=== PATIENT | male | born 1945 | race Hispanic/Latino ===

== ENCOUNTER 2019-06-01 15:58 | Observation (INO) | payer MEDICARE ==
[~2019-06-01] VITALS: Ht 175.3 cm; Wt 91.6 kg
[~2019-06-01 15:58] MED LIST: ASPIR 8181 MG PO; GLIPIZIDE5 MG PO; HYDROCHLOROTH12.5 MG PO; IBUPROFEN400 MG PO; LISINOPRIL40 MG PO; LOVASTATIN20 MG PO; METFORMIN HCL500 MG PO; THORAZINE25 MG PO
[2019-06-01] MEDS ORDERED: SODIUM CHLORIDE 0.9% 1000ML 1,000 ML IV STA (16:06)
[2019-06-01 16:40] LABS: BASOPHILS % 0.3 % (0.0-1.0); EOSINOPHILS % 0.1 % (0.0-6.0); HEMATOCRIT 35.7 % (38.2-49.6); HEMOGLOBIN 11.9 g/dL (14.0-18.0); LYMPHOCYTES # (AUTO) 1.6 (1.0-3.2); LYMPHOCYTES % 14.9 % (18.0-39.1); MEAN CORPUSCULAR HEMOGLOBIN 30.4 pg (28-32); MEAN CORPUSCULAR HGB CONC 33.3 g/dL (31-35); MEAN CORPUSCULAR VOLUME 91.3 fL (81-99); MONOCYTES # (AUTO) 1.5 (0.2-0.8); MONOCYTES % 13.7 % (4.4-11.3); NEUTROPHILS # (AUTO) 7.5 (2.1-6.9); NEUTROPHILS % 70.7 % (38.7-80.0); PLATELET COUNT 170 x10e3/uL (140-360); RED BLOOD COUNT 3.91 x10e6/uL (4.3-5.7); RED CELL DISTRIBUTION WIDTH 13.7 % (11.7-14.4)
[2019-06-01 16:52] LABS: INR 1.11; PARTIAL THROMBOPLASTIN TIME 33.2 seconds (23.8-35.5)
[2019-06-01] MEDS ORDERED: CEFEPIME 2 GM/NS 0.9% 100 ML 100 ML IV SCH (17:00)
[2019-06-01 17:02] LABS: ALBUMIN 3.8 g/dL (3.5-5.0); ALBUMIN/GLOBULIN RATIO 0.8 (0.8-2.0); ANION GAP 10.9 mmol/L (8-16); CREATININE, SERUM 1.72 mg/dL (0.72-1.25); MAGNESIUM 1.7 MG/DL (1.3-2.1); POTASSIUM 3.9 mmol/L (3.5-5.1)
[2019-06-01 17:08] LABS: CREATINE KINASE MB 0.9 ng/mL (0-5.0)
--- NOTE | 2019-06-01 17:09 | Diagnostic Imaging Report ---
EXAMINATION: CHEST SINGLE (PORTABLE) INDICATION: Cough COMPARISON: None FINDINGS: LINES/TUBES:None LUNGS:The lungs are moderately inflated. Mild left basilar subsegmental atelectasis. No focal consolidation or pulmonary edema. PLEURA:No pleural effusion or pneumothorax. MEDIASTINUM:The cardiomediastinal silhouette appears normal in size and shape. BONES/SOFT TISSUES:No acute osseous injury. ABDOMEN:No free air under the diaphragm. IMPRESSION: No focal pneumonia or pulmonary edema. Left basilar subsegmental atelectasis. Signed by: Osbaldo Gayle MD on 06/01/2019 5:07 PM
--- NOTE | 2019-06-01 17:12 | Diagnostic Imaging Report ---
EXAMINATION: Head CT HISTORY: Alteration of consciousness, possible stroke, history of TIA and prior stroke. COMPARISON: None available TECHNIQUE: Multidetector axial images were obtained without contrast from the foramen magnum to the vertex . The images were reconstructed using brain and bone algorithms. Thin section brain images were reformatted into coronal and sagittal planes. Image quality: Motion/streaking artifact limits the evaluation of the skull base and posterior cranial fossa. Dose modulation, iterative reconstruction, and/or weight based adjustment of the mA/kV was utilized to reduce the radiation dose to as low as reasonably achievable. FINDINGS: Parenchyma: 1. Cortical subcortical encephalomalacia in the left medial occipital (cuneus, to a lesser extent lingual gyri) as well as the precuneus, associated compensatory dilatation of the left occipital horn. This corresponds to a chronic infarct along the left LITIGATION LEGAL SECRETARY distribution as there is also a small chronic infarct in the left posterior thalamus. 2. Scattered white matter hypodensities, most likely nonspecific chronic microvascular ischemic changes. Small chronic lacunar infarct in the left caudate and lentiform nuclei. 3. No mass or hemorrhage. No CT evidence of acute territorial vascular insult. Extra-axial spaces:No abnormal density. No extra-axial fluid collections Brain volume: Normal for age. Ventricles: No hydrocephalus or displacement. Arteries: No density suggestive of thrombus. Dural sinuses: No abnormal density. Foramen magnum: No mass, Chiari malformation, or basilar invagination. Sella: No obvious mass. Paranasal/mastoid sinuses: Imaged portions unremarkable. Skull/Scalp: No lytic or blastic lesions. No fractures. IMPRESSION: 1. No acute intracranial hemorrhage or CT evidence of acute territorial cortical infarct. 2. Left occipital chronic infarct. 3. Mild white matter chronic microvascular ischemic changes. Signed by: Dr. Marina Alejandro M.D. on 06/01/2019 5:10 PM
[2019-06-01] MEDS ORDERED: VANCOMYCIN 1GM/NS 250 ML 250 ML IV ONE (17:30)
[2019-06-01 18:07] LABS: BILIRUBIN,URINE NEGATIVE (NEGATIVE); CLARITY,URINE SL CLOUDY (CLEAR); COLOR,URINE YELLOW (YELLOW); KETONES,URINE NEGATIVE (NEGATIVE); LEUKOCYTE ESTERASE ,URINE TRACE (NEGATIVE); NITRITE,URINE NEGATIVE (NEGATIVE); PROTEIN,URINE DIPSTICK TRACE (NEGATIVE); URINE UROBILINOGEN 0.2 mg/dL (0.2 - 1)
[2019-06-01 18:20] LABS: BACTERIA,URINE MANY /HPF; EPITHELIAL CELLS,URINE FEW /LPF; RBC,URINE 0-5 /HPF (0-5); WBC,URINE (MAN) 0-5 /HPF (0-5)
[2019-06-01] MEDS ORDERED: PANTOPRAZOLE 40 MG 10ML VIAL IV STA (20:24)
[2019-06-01] MEDS ORDERED: ONDANSETRON HCL INJ 2MG/ML 2ML 2 MG/ML VIAL IV PRN (20:30)
[2019-06-01 20:59] LABS: STREPTOCOCCUS GRP A ANTIGEN NEGATIVE (NEGATIVE)
--- OUTSIDE RECORDS SUMMARY | 2019-06-01 21:06 | XMS REPORT ---
Author [email or web address] Address Unknown Phone Unavailable Care Team Providers Care Section Leader And Machine Setter Name Role Phone Tenzin CHAVES Unavailable Unavailable Problems This patient has no known problems. Allergies, Adverse Reactions, Alerts This patient has no known allergies or adverse reactions. Medications This patient has no known medications. Results Test Description Test Time Test Comments Text Results Atomic Results Result Comments CHEST SINGLE (PORTABLE) 2019-06-01 17:07:00 [place] [id number] Patient Name: PREM VALLEJO MR #: [id number] : 1945 Age/Sex: 73/M Req #: [id number] Adm Physician: Ordered by: ANNIE CHAVES MD Report #: [id number] Location: ER Room/Bed: Procedure: [id number] DX/CHEST SINGLE (PORTABLE) Exam Date: 06/01/19 Exam Time: 1620 REPORT STATUS: Signed EXAMINATION: CHEST SINGLE (PORTABLE) INDICAT ION: Cough COMPARISON: None FINDINGS: LINES/TUBES:None LUNGS:The lungs are moderately inflated. Mild left basilar subsegmental atelectasis. No focal consolidation or pulmonary edema. PLEURA:No pleural effusion or pneumothorax. MEDIASTINUM:The cardiomediastinal silhouette appears normal in size and shape. BONES/SOFT TISSUES:No acute osseous injury. ABDOMEN:No free air under the diaphragm. IMPRESSION: No focal pneumonia or pulmonary edema. Left basilar subsegmental atelectasis. Signed by: Vee Gayle MD on 06/01/2019 5:07 PM Dictated By: VEE GAYLE MD 06 Transcribed By: CHRISTOPHER on 06/01/191706 COPY TO: ANNIE CHAVES MD CT BRAIN WO 2019-06-01 16:59:00 [place] [id number] Patient Name: PREM VALLEJO MR #: [id number] : 1945 Age/Sex: 73/M Req #: [id number] Adm Physician: Ordered by: ANNIE CHAVES MD Report #: [id number] Location: ER Room/Bed: Procedure: [id number] CT/CT BRAIN WO Exam Date: 06/01/19 Exam Time: 1620 REPORT STATUS: Signed EXAMINATION: Head CT HISTORY: Alteration of consciousness, possible stroke, history of TIA and prior stroke. COMPARISON: None available TECHNIQUE: Multidetector axial images were obtained without contrast from the foramen magnum to the vertex . The images were reconstructed using brain and bone algorithms. Thin section brain images were reformatted into coronal and sagittal planes. Image quality: Motion/streaking artifact limits the evaluation of the skull base and posterior cranial fossa. Dose modulation, iterative reconstruction, and/or weight based adjustment of the mA/kV was utilized to reduce the radiation dose to as low as reasonably achievable. FINDINGS: Parenchyma: 1. Cortical subcortical encephalomalacia in the left medial occipital (cuneus, to a lesser extent lingual gyri) as well as the precuneus, associated compensatory dilatation of the left occipital horn. This corresponds to a chronic infarct along the left DIRECTOR WORKFORCE MANAGEMENT distribution as there is also a small chronic infarct in the left posterior thalamus. 2. Scattered white matter hypodensities, most likely nonspecific chronic microvascular ischemic changes. Small chronic lacunar infarct in the left caudate and lentiform nuclei. 3. No mass or hemorrhage. No CT evidence of acute territorial vascular insult. Extra-axial spaces:No abnormal density. No extra-axial fluid collections Brain volume: Normal for age. Ventricles: No hydrocephalus or displacement. Arteries: No density suggestive of thrombus. Dural sinuses: No abnormal density. Foramen magnum: No mass, Chiari malformation, or basilar invagination. Sella: No obvious mass. Paranasal/mastoid sinuses: Imaged portions unremarkable. Skull/Scalp: No lytic or blastic lesions. No fractures. IMPRESSION: 1. No acute intracranial hemorrhage or CT evidence of acute territorial cortical infarct. 2. Left occipital chronic infarct. 3. Mild white matter chronic microvascular ischemic changes. Signed by: Dr. Deirdre Alejandro M.D. on 06/01/2019 5:10 PM Dictated By: DEIRDRE ALEJANDRO MD 09 Transcribed By: CHRISTOPHER on 06/01/191709 COPY TO: ANNIE CHAVES MD
[2019-06-01 21:10] LABS: INFLUENZAE A&B ANTIGEN (RAPID) POSITIVE FLU A (NEGATIVE)
[2019-06-01] MEDS: SODIUM CHLORIDE 0.9% 1000ML 1,000 ML IV SCH (21:22)
[2019-06-01] MEDS: AZITHROMYCIN 500MG/NS 250 ML 250 ML IV SCH (23:00)
[2019-06-02 00:30] LABS: CREATINE KINASE MB 1.3 ng/mL (0-5.0)
[2019-06-02 06:28] LABS: BASOPHILS % 0.4 % (0.0-1.0); HEMATOCRIT 33.3 % (38.2-49.6); LYMPHOCYTES # (AUTO) 2.1 (1.0-3.2); LYMPHOCYTES % 26.5 % (18.0-39.1); MEAN CORPUSCULAR VOLUME 90.7 fL (81-99); MONOCYTES # (AUTO) 1.3 (0.2-0.8); MONOCYTES % 17.1 % (4.4-11.3); NEUTROPHILS # (AUTO) 4.3 (2.1-6.9); NEUTROPHILS % 55.9 % (38.7-80.0); PLATELET COUNT 147 x10e3/uL (140-360); RED BLOOD COUNT 3.67 x10e6/uL (4.3-5.7); RED CELL DISTRIBUTION WIDTH 13.6 % (11.7-14.4)
[2019-06-02 06:57] LABS: ALBUMIN 3.3 g/dL (3.5-5.0); ALBUMIN/GLOBULIN RATIO 0.8 (0.8-2.0); ANION GAP 11.6 mmol/L (8-16); CALCIUM 8.5 mg/dL (8.4-10.2); CREATININE, SERUM 1.38 mg/dL (0.72-1.25); POTASSIUM 3.6 mmol/L (3.5-5.1)
[2019-06-02] MEDS: SODIUM CHLORIDE 0.9% 1000ML 1,000 ML IV SCH (08:45)
[2019-06-02] MEDS: OSELTAMIVIR PHOSPHATE 75 MG CAP PO SCH ×2 (08:46→16:31)
[2019-06-02] MEDS: PANTOPRAZOLE 40 MG 10ML VIAL IV SCH ×2 (08:46→16:31)
[2019-06-02 09:21] LABS: CREATINE KINASE MB 2.2 ng/mL (0-5.0)
--- NOTE | 2019-06-02 10:38 | NUR ---
H&P cc: sob HPI: 73yoM, PCP , pt not feeling well, tired and fatigued, developed sob, found to have flu infection. PMH: DM2, HLD, stroke PSHx: appendectomy Allergies; see emr Fh/SH; non cigs; meds see MAR ROS; no f/c/s/N/V/D/CARO/cp/skin rash/back pain/dysuria/dizziness v/s; revd PE tired appearing; anicteric; Dry mucus membranes ns1s2 moderately reduced BS soft nt nd no e/t skin dry n. affect labs/meds revd A/P: Inflenza A infection- tamilfu Sepsis- iv abx JC- ivf Hyponatremia- reassess after ivf UTI- iv abx DM2- hab1c/lipids HLD- home med; diet Prop: scd Dispo: f/u labs; Mart Sullivan MD, PhD.
[2019-06-02] MEDS ORDERED: NON-FORMULARY MEDICATION (Lovastatin 20 MG) PO PRN (10:45)
[2019-06-02 10:59] LABS: CHOL/HDL RATIO 3.5 (3.9-4.7)
--- NOTE | 2019-06-02 12:15 | NUR ---
Received patient via bed from ER. Accompanied by daughter. AAOX3 to time, person, place. Respirations even and unlabored. Denies pain. Oriented patient and daughter to room. Instructed to use call light for assistance for assistance. Voiced understanding.
[2019-06-02 12:23] VITALS: BP 154/71
[2019-06-02 12:45] VITALS: BP 154/71
[2019-06-02 12:46] VITALS: BP 154/71
[2019-06-02] MEDS ORDERED: LOSARTAN POTASS25 MG PO (12:57)
[2019-06-02] MEDS ORDERED: AMLODIPINE BESY10 MG PO (12:57)
[2019-06-02] MEDS ORDERED: PIOGLITAZONE HC45 MG PO (12:57)
[2019-06-02] MEDS ORDERED: CLONIDINE HCL0.1 MG PO (12:57)
[2019-06-02] MEDS ORDERED: FERROUS SULFAT325 M1 PO (12:57)
[2019-06-02] MEDS: CEFTRIAXONE SOD 1 GM/NS 50 ML 50 ML IV SCH (13:00)
[2019-06-02] MEDS ORDERED: HYDROCORTISONE 2.5% PR CRM 1 OZ TUBE PR PRN (15:15)
[2019-06-02 15:29] LABS: CREATINE KINASE MB 2.5 ng/mL (0-5.0)
[2019-06-02 15:52] VITALS: BP 144/68
[2019-06-02] MEDS: AMLODIPINE BESYLATE 10 MG TAB PO SCH (16:31)
--- NOTE | 2019-06-02 19:10 | NUR ---
RECEIVED THE PATIENT IN REPORT.LYEING IN THE BED.STABLE CONDITION.FAMILY MEMBER AT BED SIDE.
--- NOTE | 2019-06-02 19:12 | NUR ---
Report given to oncoming nurse of patient's status. Resting in bed. No s/s of acute distress noted. Side rails upx2, call light within reach, family member at bedside.
[2019-06-02] MEDS: AZITHROMYCIN 500MG/NS 250 ML 250 ML IV SCH (19:47)
[2019-06-02 20:00] VITALS: BP 147/71
[2019-06-02] MEDS ORDERED: ACETAMINOPHEN 325 MG TAB PO PRN (20:30)
[2019-06-02] MEDS ORDERED: SIMVASTATIN 20 MG TAB PO SCH (21:00)
--- NOTE | 2019-06-02 22:30 | NUR ---
Fever notified to .received new orders.
--- NOTE | 2019-06-02 23:21 | NUR ---
Assessment done.no resp.distress.no pain voiced.iv to left ac is patent.bed locked and in lowest position.phone and call light within reach.instructed to call for assistance as needed.
[2019-06-03] VITALS: BP 142/65
[2019-06-03 04:00] VITALS: BP 153/71
--- NOTE | 2019-06-03 07:00 | NUR ---
Bed side shift report given to oncoming Rn.stable condition.
--- NOTE | 2019-06-03 07:05 | NUR ---
BEDSIDE SHIFT REPORT RECEIVED FROM SAMANTHA CHAPA. PT DENIES NEEDS AT THIS TIME.
[2019-06-03 08:19] VITALS: BP 141/66
[2019-06-03] MEDS ORDERED: ASPIRIN 81 MG CHEW TAB PO SCH (09:00)
[2019-06-03] MEDS ORDERED: FERROUS SULFATE 325 MG TAB PO SCH (09:00)
[2019-06-03] MEDS: OSELTAMIVIR PHOSPHATE 75 MG CAP PO SCH (09:35)
[2019-06-03] MEDS: AMLODIPINE BESYLATE 10 MG TAB PO SCH (09:35)
[2019-06-03] MEDS: PANTOPRAZOLE 40 MG 10ML VIAL IV SCH (09:35)
[2019-06-03 09:37] LABS: BASOPHILS % 0.4 % (0.0-1.0); EOSINOPHILS % 0.4 % (0.0-6.0); HEMATOCRIT 38.8 % (38.2-49.6); HEMOGLOBIN 12.7 g/dL (14.0-18.0); LYMPHOCYTES # (AUTO) 2.4 (1.0-3.2); LYMPHOCYTES % 32.7 % (18.0-39.1); MEAN CORPUSCULAR HEMOGLOBIN 29.7 pg (28-32); MEAN CORPUSCULAR HGB CONC 32.7 g/dL (31-35); MEAN CORPUSCULAR VOLUME 90.7 fL (81-99); MONOCYTES % 13.2 % (4.4-11.3); NEUTROPHILS # (AUTO) 3.8 (2.1-6.9); NEUTROPHILS % 53.2 % (38.7-80.0); PLATELET COUNT 162 x10e3/uL (140-360); RED BLOOD COUNT 4.28 x10e6/uL (4.3-5.7); RED CELL DISTRIBUTION WIDTH 13.5 % (11.7-14.4)
[2019-06-03 09:47] VITALS: BP 141/66
[2019-06-03 09:51] LABS: ANION GAP 12.7 mmol/L (8-16); CREATININE, SERUM 1.3 mg/dL (0.72-1.25); POTASSIUM 3.7 mmol/L (3.5-5.1)
[2019-06-03] MEDS: CEFTRIAXONE SOD 1 GM/NS 50 ML 50 ML IV SCH (11:35)
[2019-06-03] MEDS ORDERED: DEXTROSE 50% SYRINGE 50 ML IV PRN (11:45)
--- NOTE | 2019-06-03 11:57 | NUR ---
D/C Summary Principal Dx: Inflenza A infection- tamilfu Sepsis- iv abx JC- ivf Hyponatremia- reassess after ivf UTI- iv abx Secondary Dx: DM2- hab1c/lipids HLD- home med; diet Prop: scd Dispo: f/u labs; 06/02 Hba1c/LDL 7.; cont care; d/c home stable f/u pcp 1 week d/c>35mins Mart Sullivan MD, PhD.
[2019-06-03] MEDS ORDERED: ZITHROMAX500 MG PO (12:29)
[2019-06-03] MEDS ORDERED: MUCINEX DM ER1 EACH PO (12:29)
[2019-06-03] MEDS ORDERED: TESSALON PERLE100 MG PO (12:29)
[2019-06-03] MEDS ORDERED: KEFLEX500 MG PO (12:29)
[2019-06-03 12:32] VITALS: BP 121/64
[2019-06-03] MEDS ORDERED: TAMIFLU75 MG PO (13:03)
--- NOTE | 2019-06-03 14:07 | NUR ---
PATIENT AAOX3. ACYANOTIC. NO DISTRESS NOTED. DENIES PAIN. TRANSPORTED FROM UNIT VIA WHEELCHAIR BY STAFF AFTER DISCHARGE. PT IN STABLE CONDITION.
--- NOTE | 2019-06-03 14:32 | NUR ---
PT'S PHARMACY INFORMATION SENT TO DR. CHI FOR TAMAFLU PRESCRIPTION TO BE SENT.
[2019-06-03] MEDS ORDERED: INSULIN REGULAR, HUMAN 100 UNIT/1 ML 3ML VIAL SQ SCH (16:30)
== END 2019-06-03 14:03 | disposition home or self-care (01) ==
LOC: ER 15:58 → ERHOLD 20:28 → MED/SURG2 06-02 12:15 → INTOOBSV 06-03 12:00 → OBSVTOIN 06-03 12:00
PROVIDERS: ADMIT Internal Medicine; ATTEND Internal Medicine
DX: A41.9 Sepsis, unspecified organism (principal); E11.9 Type 2 diabetes mellitus without complications; E78.5 Hyperlipidemia, unspecified; J10.1 Influenza due to other identified influenza virus with other respiratory manifestations; E87.1 Hypo-osmolality and hyponatremia; N39.0 Urinary tract infection, site not specified; N17.9 Acute kidney failure, unspecified; Z86.73 Personal history of transient ischemic attack (TIA), and cerebral infarction without residual deficits
CPT/HCPCS: 36415 ×3; 70450; 71045; 80048; 80053 ×2; 80061; 81001; 82550 ×2; 82553 ×2; 82948 ×2; 83036; 83518; 83605; 83735; 83880; 84484 ×2; 85025 ×3; 85610; 85730; 86850; 86900; 87040; 87070; 87086; 87400; 93005; 97116; 97161; 99285; C9113 ×3; G0378 ×3; J0456 ×2; J0696 ×2; J3370; J7030 ×2

== ENCOUNTER 2019-10-22 20:58 | Emergency (ER) | payer MEDICARE ==
[~2019-10-22] VITALS: Ht 175.3 cm; Wt 91.6 kg
[~2019-10-22 20:58] MED LIST changes: +AMLODIPINE BESY10 MG PO; +CLONIDINE HCL0.1 MG PO; +FERROUS SULFAT325 M1 PO; +KEFLEX500 MG PO; +LOSARTAN POTASS25 MG PO; +MUCINEX DM ER1 EACH PO; +PIOGLITAZONE HC45 MG PO; +TAMIFLU75 MG PO; +TESSALON PERLE100 MG PO; +ZITHROMAX500 MG PO
[2019-10-22] MEDS ORDERED: ACETAMINOPHEN 325 MG TAB ONE (21:12)
[2019-10-22] MEDS ORDERED: ACETAMINOPHEN 325 MG TAB PO ONE (21:15)
--- NOTE | 2019-10-22 21:19 | Emergency Department Note ---
History of Present Illnes History of Present Illness Chief Complaint: General Medicine Complaints History of Present Illness This is a 74 year old male arrives to the ED with complaints of a fever, son-in-law positive for Covid 19, patient admits to cough and runny nose. Onset (how long ago): day(s) Severity: mild Duration (how long): day(s) Timing of current episode: intermittent Progression: waxing and waning Chronicity: new Relieving factors: none Exacerbating factors: none Past Medical/Family History Physician Review I have reviewed the patient's past medical and family history. Any updates have been documented here. Past Medical History Past Medical History: CVA, TIA Other Medical History: CHOLESTEROL HEMORRHOIDS Past Surgical History: Appendectomy Social History Smoking Cessation: Never Smoker Counseling Performed: No Any Illegal Drug Use: No Review of Systems Review of Systems Constitutional: Reports as per HPI, Reports chills, Reports fever EENTM: Reports no symptoms Cardiovascular: Reports no symptoms Respiratory: Reports as per HPI, Reports cough Gastrointestinal: Reports no symptoms Genitourinary: Reports no symptoms Musculoskeletal: Reports no symptoms Integumentary: Reports no symptoms Neurological: Reports no symptoms Psychological: Reports no symptoms Endocrine: Reports no symptoms Hematological/Lymphatic: Reports no symptoms Physical Exam Related Data Allergies: Coded Allergies: No Known Allergies (Unverified , 06/01/19) Vital signs reviewed: Yes Physical Exam CONSTITUTIONAL Constitutional: Present well-developed, Present well-nourished, Present obese HENT HENT: Present normocephalic, Present atraumatic, Present oropharynx clear/moist, Present nose normal HENT L/R: Present left ext ear normal, Present right ext ear normal EYES Eyes: Reports PERRL, Reports conjunctivae normal NECK Neck: Present ROM normal PULMONARY Pulmonary: Present effort normal, Present breath sounds normal CARDIOVASCULAR Cardiovascular: Present regular rhythm, Present heart sounds normal, Present capillary refill normal, Present normal rate GASTROINTESTINAL Abdominal: Present soft, Present nontender, Present bowel sounds normal GENITOURINARY Genitourinary: Present exam deferred SKIN Skin: Present warm, Present dry MUSCULOSKELETAL Musculoskeletal: Present ROM normal NEUROLOGICAL Neurological: Present alert, Present oriented x 3, Present no gross motor or s ensory deficits PSYCHOLOGICAL Psychological: Present mood/affect normal, Present judgement normal Results Imaging Imaging results reviewed: Yes Impressions IMPRESSION: Left basal atelectasis versus scarring. No significant change compared to May 2019. Signed by: Dr. Tal Simons M.D. on 10/22/2019 9:45 PM Assessment & Plan Medical Decision Making MDM 74-year-old male arrives to the ED with complaints of fever cough, failure or positive further coronavirus. Patient is clinically presenting with signs and symptoms consistent with Covid 19. Patient informed he is positive until proven otherwise. Patient's oxygen saturation remained 99% even on exertion, no evidence of tachypnea or dyspnea noted in the ED. Spoke present length about the importance of sleeping on his stomach and rotating from side to side. Z-Reji given, signs and symptoms for return discussed. Pt understands he is at high risk of morbidity and mortality given his age and co-morbidities. Pt understands he is welcome to return to the ED at anytime for worsening symptoms. Patient's lab work reviewed,- chest x-ray shows questionable patchy airspace opacities . Patient clinically appears well, outpatient pulmonary follow-up given. The red flags for return to emergency department given. Patient understands the emergency department is open at all times to serve his needs as well as the needs of the community. Assessment & Plan Final Impression: (1) COVID-19 (2) UTI (urinary tract infection) Depart Disposition: HOME, SELF-detention Meds Active Scripts Dexamethasone (Decadron) 6 Mg Tablet, 6 MG PO DAILY, #5 Prov:REGINALD GUILLORY, DO 10/22/19 Levofloxacin (LEVAQUIN) 500 Mg Tablet, 500 MG PO DAILY, #10 TAB 0 Refills Prov:REGINALD GUILLORY, DO 10/22/19 Guaifenesin/Dextromethorphan (MUCINEX DM ER 600-30 MG TABLET) 1 Each Tab.er.12h, 1 EACH PO Q12H, #20 TAB Prov:CLINT CHI MD 06/03/19 Benzonatate (TESSALON PERLE) 100 Mg Capsule, 100 MG PO Q8H, #30 Prov:CLINT CHI MD 06/03/19 Cephalexin Monohydrate (KEFLEX) 500 Mg Capsule, 500 MG PO Q12H, #10 Prov:CLINT CHI MD 06/03/19 Azithromycin (ZITHROMAX) 500 Mg Tablet, 500 MG PO DAILY, #5 Prov:CLINT CHI MD 06/03/19 Reported Medications Oseltamivir Phosphate (TAMIFLU) 75 Mg Cap, 75 MG PO BID, #10 CAP 06/03/19 Ferrous Sulfate (FERROUS SULFATE) 325 Mg Tablet.dr, 325 MG PO DAILY 06/02/19 Amlodipine Besylate (AMLODIPINE BESYLATE) 10 Mg Tablet, 10 MG PO DAILY, #30 TAB 06/02/19 Pioglitazone Hcl (PIOGLITAZONE HCL) 45 Mg Tablet, 15 MG PO DAILY, #30 TAB 06/02/19 Clonidine Hcl (CLONIDINE HCL) 0.1 Mg Tablet, 1 TAB PO BID, #60 TAB 06/02/19 Aspirin (ASPIR 81) 81 Mg Tablet.dr, 81 MG PO DAILY 06/06/14 Glipizide (GLIPIZIDE) 5 Mg Tablet, 5 MG PO BID, TAB 06/06/14 Lovastatin (LOVASTATIN) 20 Mg Tablet, 20 MG PO HS 06/06/14 Hydrochlorothiazide (HYDROCHLOROTHIAZIDE) 12.5 Mg Tablet, 12.5 MG PO DAILY 06/06/14 Medications in the ED Acetaminophen 975 mg STK-MED ONCE .ROUTE ; Start 10/22/19 at 21:12; Stop 10/22/19 at 21:07; Status DC REGINALD GUILLORY, DO Oct 22, 2019 21:19
[2019-10-22 21:28] LABS: BILIRUBIN,URINE NEGATIVE (NEGATIVE); CLARITY,URINE SL CLOUDY (CLEAR); COLOR,URINE YELLOW (YELLOW); LEUKOCYTE ESTERASE ,URINE NEGATIVE (NEGATIVE); PROTEIN,URINE DIPSTICK >=300 (NEGATIVE); URINE UROBILINOGEN 0.2 mg/dL (0.2 - 1)
[2019-10-22 21:29] LABS: KETONES,URINE 1+ (NEGATIVE); NITRITE,URINE POSITIVE (NEGATIVE)
[2019-10-22 21:34] LABS: BACTERIA,URINE MANY /HPF
[2019-10-22] MEDS ORDERED: LEVAQUIN500 MG PO (21:36)
[2019-10-22] MEDS ORDERED: DECADRON6 MG PO (21:36)
--- NOTE | 2019-10-22 21:48 | Diagnostic Imaging Report ---
EXAMINATION: CHEST SINGLE (PORTABLE) INDICATION: COVID. COMPARISON: 06/01/2019. FINDINGS: LINES/TUBES:None LUNGS:The lungs are moderately inflated. Mild patchy density in the left lung base is again observed suggestive of subsegmental atelectasis versus scarring.. No focal consolidation or pulmonary edema. PLEURA:No pleural effusion or pneumothorax. MEDIASTINUM:The cardiomediastinal silhouette appears normal in size and shape. BONES/SOFT TISSUES:No acute osseous injury. ABDOMEN:No free air under the diaphragm. IMPRESSION: Left basal atelectasis versus scarring. No significant change compared to May 2019. Signed by: Dr. Tal Simons M.D. on 10/22/2019 9:45 PM
== END 2019-10-22 22:20 | disposition home or self-care (01) ==
LOC: ER 21:10
DX: U07.1 COVID-19 (principal); R50.9 Fever, unspecified; N39.0 Urinary tract infection, site not specified; R05 Cough; E78.00 Pure hypercholesterolemia, unspecified; Z86.73 Personal history of transient ischemic attack (TIA), and cerebral infarction without residual deficits
CPT/HCPCS: 71045; 81001; 99283

== ENCOUNTER 2019-10-27 06:48 | Emergency (ER) | payer MEDICARE ==
[~2019-10-27] VITALS: Ht 175.3 cm; Wt 91.6 kg
[~2019-10-27 06:48] MED LIST changes: +DECADRON6 MG PO; +LEVAQUIN500 MG PO
[2019-10-27 07:37] VITALS: BP 135/76
--- NOTE | 2019-10-27 08:02 | Emergency Department Note ---
History of Present Illnes History of Present Illness Chief Complaint: COVID PUI History of Present Illness This is a 74 year old male arrives to the ED at daughter's insistence for low oxygen saturation. Daughter states father's oxygen saturation was in the 80s at home which prompted her bringing him to the ED. Patient denies any complaints states he feels fine, admits to doing proning exercises as instructed. 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 Any updates have been documented here. Past Medical History Recent Fever: No Clinical Suspicion of Infectio: No New/Unexplained Change in Ment: No Past Medical History: CVA, TIA Other Medical History: CHOLESTEROL HEMORRHOIDS Past Surgical History: None, Appendectomy Social History Smoking Cessation: Never Smoker Counseling Performed: No Alcohol Use: None Any Illegal Drug Use: No Physically hurt or threatened: No Other Any Pre-Existing Lines (PICC,: No Review of Systems Review of Systems Constitutional: Reports as per HPI EENTM: Reports no symptoms Cardiovascular: Reports no symptoms Respiratory: Reports as per HPI Gastrointestinal: Reports no symptoms Genitourinary: Reports no symptoms Musculoskeletal: Reports no symptoms Integumentary: Reports no symptoms Neurological: Reports no symptoms Psychological: Reports no symptoms Endocrine: Reports no symptoms Hematological/Lymphatic: Reports no symptoms Physical Exam Related Data Allergies: Coded Allergies: No Known Allergies (Unverified , 06/01/19) Triage Vital Signs Vital Signs Date Time Temp Pulse Resp B/P (MAP) Pulse Ox O2 Delivery O2 Flow Rate FiO2 10/27/19 06:59 99.1 96 26 156/82 95 Room Air Vital signs reviewed: Yes Physical Exam CONSTITUTIONAL Constitutional: Present well-developed, Present well-nourished HENT HENT: Present normocephalic, Present atraumatic, Present oropharynx clear/moist, Present nose normal HENT L/R: Present left ext ear normal, Present right ext ear normal EYES Eyes: Reports PERRL, Reports conjunctivae normal NECK Neck: Present ROM normal PULMONARY Pulmonary: Present effort normal, Present breath sounds normal CARDIOVASCULAR Cardiovascular: Present regular rhythm, Present heart sounds normal, Present capillary refill normal, Present normal rate GASTROINTESTINAL Abdominal: Present soft, Present nontender, Present bowel sounds normal GENITOURINARY Genitourinary: Present exam deferred SKIN Skin: Present warm, Present dry MUSCULOSKELETAL Musculoskeletal: Present ROM normal NEUROLOGICAL Neurological: Present alert, Present oriented x 3, Present no gross motor or sensory deficits PSYCHOLOGICAL Psychological: Present mood/affect normal, Present judgement normal Assessment & Plan Medical Decision Making MDM 74-year-old well-appearing male arrives to the ED after concerns daughter had about low oxygen saturation, patient has no complaints. Clinically patient appeared well with no evidence of tachypnea or hypoxia noted, patient in no respiratory distress. Spoke to daughter at length, just concerns, daughter is also concerned patient has pickups that this may cause a stroke. Daughter educated, patient stable for discharge Assessment & Plan Final Impression: (1) COVID-19 Depart Disposition: HOME, SELF-CARE Last Vital Signs Date Time Temp Pulse Resp B/P (MAP) Pulse Ox O2 Delivery O2 Flow Rate FiO2 10/27/19 07:37 79 22 96 10/27/19 07:27 98.7 126/69 Room Air Home Meds Active Scripts Dexamethasone (Decadron) 6 Mg Tablet, 6 MG PO DAILY, #5 Prov:REGINALD GUILLORY, DO 10/22/19 Levofloxacin (LEVAQUIN) 500 Mg Tablet, 500 MG PO DAILY, #10 TAB 0 Refills Prov:REGINALD GUILLORY, DO 10/22/19 Guaifenesin/Dextromethorphan (MUCINEX DM ER 600-30 MG TABLET) 1 Each Tab.er.12h, 1 EACH PO Q12H, #20 TAB Prov:CLINT CHI MD 06/03/19 Benzonatate (TESSALON PERLE) 100 Mg Capsule, 100 MG PO Q8H, #30 Prov:CLINT CHI MD 06/03/19 Cephalexin Monohydrate (KEFLEX) 500 Mg Capsule, 500 MG PO Q12H, #10 Prov:CLINT CHI MD 06/03/19 Azithromycin (ZITHROMAX) 500 Mg Tablet, 500 MG PO DAILY, #5 Prov:CLINT CHI MD 06/03/19 Reported Medications Oseltamivir Phosphate (TAMIFLU) 75 Mg Cap, 75 MG PO BID, #10 CAP 06/03/19 Ferrous Sulfate (FERROUS SULFATE) 325 Mg Tablet.dr, 325 MG PO DAILY 06/02/19 Amlodipine Besylate (AMLODIPINE BESYLATE) 10 Mg Tablet, 10 MG PO DAILY, #30 TAB 06/02/19 Pioglitazone Hcl (PIOGLITAZONE HCL) 45 Mg Tablet, 15 MG PO DAILY, #30 TAB 06/02/19 Clonidine Hcl (CLONIDINE HCL) 0.1 Mg Tablet, 1 TAB PO BID, #60 TAB 06/02/19 Aspirin (ASPIR 81) 81 Mg Tablet.dr, 81 MG PO DAILY 06/06/14 Glipizide (GLIPIZIDE) 5 Mg Tablet, 5 MG PO BID, TAB 06/06/14 Lovastatin (LOVASTATIN) 20 Mg Tablet, 20 MG PO HS 06/06/14 Hydrochlorothiazide (HYDROCHLOROTHIAZIDE) 12.5 Mg Tablet, 12.5 MG PO DAILY 06/06/14 REGINALD GUILLORY DO Oct 27, 2019 08:02
--- OUTSIDE RECORDS SUMMARY | 2019-10-27 21:08 | XMS REPORT | Continuity of Care Document ---
Author Author [facility] t Organization [facility] Address [address] [place] [address] Phone Unavailable Care Team Providers Care Information Services Tech Name Role Phone MD Joaquin CLARK MD PCP Heladio GUILLORY Attphys Unavailable Joaquin CHAVES Attphys Unavailable Payers Payer Name Policy Type Policy Number Effective Date Expiration Date S jaclyn Medicare A & B [id number] 2006 00:00:00 [facility] Medicare Part B Only [id number] [facility] Problems Condition Name Condition Details Condition Category Status Onset Date Resolution Date Last Treatment Date Treating Clinician Comments Source Hiccups Hiccups Problem Active 2014-06-07 00:00:00 [facility] Transient cerebral ischemia Problem Active 2014-06-07 00:00:00 [facility] Confusion Confusion Problem Active [facility] Dehydration Dehydration Problem Active [facility] Hematochezia Hematochezia Problem Active [facility] Renal insufficiency Renal insufficiency Problem Active [facility] Infection due to severe acute respiratory syndrome coronavir us 2 (SARS-CoV-2) Problem Active [facility] Urinary tract infection Problem Active [facility] Allergies, Adverse Reactions, Alerts This patient has no known allergies or adverse reactions. Social History Social Habit Start Date Stop Date Quantity Comments Source Sex Assigned At [birth year] 00[birth year]:00 Male [facility] Medications Ordered Medication Name Filled Medication Name Start Date Stop Da te Current Medication? Ordering Clinician Indication Dosage Frequency Signature (SIG) Comments Components Source Dexamethasone (Decadron) 6 Mg TABLET Dexamethasone (Decadron ) 6 Mg TABLET 2019-10-22 21:36:00 Yes 6 Daily [facility] Levofloxacin (Levaquin) 500 Mg TABLET Levofloxacin (Levaquin ) 500 Mg TABLET 2019-10-22 21:36:00 Yes 500 Daily [facility] Azithromycin (Zithromax) 500 Mg TABLET Azithromycin (Zithrom ax) 500 Mg TABLET 2019-06-03 11:29:00 Yes 500 Daily [facility] Benzonatate (Tessalon Perle) 100 Mg CAPSULE Benzonatat e (Tessalon Perle) 100 Mg CAPSULE 2019-06-03 11:29:00 Yes 100 Every 8 Hours [facility] Cephalexin Monohydrate (Keflex) 500 Mg CAPSULE Cephale oscar Monohydrate (Keflex) 500 Mg CAPSULE 2019-06-03 11:29:00 Yes 500 Every 12 Hours [facility] Guaifenesin/Dextromethorphan (Mucinex Dm Er 600-30 Mg Tablet) 1 Each TAB.ER.12H Guaifenesin/Dextromethorphan (Mucinex Dm Er 600-30 Mg Tablet) 1 Each TAB.ER.12H 2019-06-03 11:29:00 Yes 1 Every 12 Hours [facility] Chlorpromazine Hcl (Thorazine) 25 Mg TAB Chlorpromazin e Hcl (Thorazine) 25 Mg TAB 2014-06-10 12:10:00 2019-06-02 00:00:00 No 25 Three Times A Day as needed for Hiccups [facility] Amlodipine Besylate Amlodipine Besylate Yes 10 Daily [facility] Aspirin (Aspir 81) 81 Mg TABLET. Aspirin (Aspir 81) 81 Mg TABLET. Yes 81 Daily [facility] Clonidine Hcl Clonidine Hcl Yes 1 Twice A Day [facility] Ferrous Sulfate Ferrous Sulfate Yes 325 Daily [facility] Glipizide Glipizide Yes 5 Twice A Day [facility] Hydrochlorothiazide Hydrochlorothiazide Yes 12.5 Daily [facility] Lovastatin Lovastatin Yes 20 Bedtime [facility] Oseltamivir Phosphate (Tamiflu) 75 Mg CAP Oseltamivir Phosphate (Tamiflu) 75 Mg CAP Yes 75 Twice A Day [facility] Pioglitazone Hcl Pioglitazone Hcl Yes 15 Daily [facility] Losartan Potassium Losartan Potassium 2019-06-03 00:00:00 No 50 Daily [facility] Ibuprofen Ibuprofen 2019-06-02 00:00:00 No 400 Twice A Day [facility] Lisinopril Lisinopril 2019-06-02 00:00:00 No 40 Dana [address] [facility] Metformin Hcl Metformin Hcl 2019-06-02 00:00:00 No 500 Twice A Day [facility] Vital Signs Vital Name Observation Time Observation Value Comments Source Body Temperature 2019-10-27 07:37:00 98.4 [degF] [facility] Weight 2019-10-27 06:59:00 202 [lb_av] [facility] BMI (Body Mass Index) 2019-10-27 06:59:00 29.8 kg/m2 [facility] Weight 2019-10-22 21:02:00 202 [lb_av] [facility] BMI (Body Mass Index) 2019-10-22 21:02:00 29.8 kg/m2 [facility] Body Temperature 2019-06-03 11:32:00 99.8 [degF] [facility] Procedures Procedure Date / Time Performed Performing Clinician [facility] e Computed tomography of brain without radiopaque contrast 00:00:00 ANNIE CHAVES [facility] Encounters Start Date/Time End Date/Time Encounter Type Admission Type [facility] Care Department Encounter ID Source 2019-10-27 07:00:00 2019-10-27 08:00:00 Departed Emergency Room [facility] [id number] [facility] 2019-10-22 21:10:00 2019-10-22 22:20:00 Departed Emergency Room REGINALD GUILLORY [facility] [id number] [facility] 2019-06-01 19:28:00 2019-06-03 13:03:00 Discharged Inpatient (obs) ANNIE BOSWELL [facility] [id number] [facility] Results Test Description Test Time Test Comments Results Result Comments Source CHEST SINGLE (PORTABLE) 2019-10-22 21:43:00 [facility] [address] [address] Patient Name: PREM VALLEJO MR #: [id number] : 1945 Age/Sex: 74/M Req #: [id number] Adm Physician: Ordered by: REGINALD GUILLORY DO Report #: [id number] Location: ER Room/Bed: Procedure: [id number] DX/CHEST SINGLE (PORTABLE) Exam Date: 10/22/19 Exam Time: 2129 REPORT STATUS: Signed EXAMINATION: CHEST SINGLE (PORTABLE) INDICATION: COVID. COMPARISON: 06/01/2019. FINDINGS: LINES/TUBES:None LUNGS:The lungs are moderately inflated. Mild patchy density in the left lung base is again observed suggestive of subsegmental atelectasis versus scarring.. No focal consolidation or pulmonary edema. PLEURA:No pleural effusion or pneumothorax. MEDIASTINUM:The cardiomediastinal silhouette appears normal in size and shape. BONES/SOFT TISSUES:No acute osseous injury. ABDOMEN:No free air under the diaphragm. IMPRESSION: Left basal atelectasis versus scarring. No significant change compared to May 2019. Signed by: Dr. Tal Acosta M.D. on 10/22/2019 9:45 PM Dictated By: GAURI ACOSTA MD, MD 44 Transcribed By: CHRISTOPHER on 10/22/192144 COPY TO: REGINALD GUILLORY DO Urine color determination 2019-10-22 21:10:00 Test Item Urine Color (test code = 5778-6) YELLOW YELLOW [facility] fhtzubo6901-88-66 21:10:00* Test Item Value Reference Range Interpretation Comments Urine Clarity (test code = 83153-5) SL CLOUDY CLEAR [facility] [place] of Urine by Test strip 2019-10-22 21:10:00* Test Item Value Reference Range Interpretation Comments Urine Specific Notus (test code = 5811-5) 1.025 1.010-1.02 5 [facility] pH measurement by automated test qqqph3392-87-82 21:10:00* Test Item Value Reference Range Interpretation Comments Urine pH (test code = 48845-1) 5.5 5-7 [facility] Center[facility] leukocyte esterase detection by dkdzpbwk6603-15-48 21:10:00* Test Item Value Reference Range Interpretation Comments Urine Leukocyte Esterase (test code = 5799-2) NEGATIVE NEGATIVE [facility] Center[facility] nitrite uqhrzvszg2766-34-70 21:10:00* Test Item Value Reference Range Interpretation Comments Urine Nitrite (test code = 75833-3) POSITIVE NEGATIVE [facility] CenterU[facility] protein measurement by test strip (mass/volume)2019-10-22 21:10:00* Test Item Value Reference Range Interpretation Comments Urine Protein (test code = 5804-0) >=300 NEGATIVE [facility] CenterU[facility] glucose unlxtzlkn1366-25-43 21:10:00* Test Item Value Reference Range Interpretation Comments Urine Glucose (UA) (test code = 2349-9) NEGATIVE NEGATIVE [facility] CenterUrine ketones detection by automated test hyflg3074-57-69 21:10:00* Test Item Value Reference Range Interpretation Comments Urine Ketones (test code = 82471-1) 1+ NEGATIVE [facility] CenterUrine urobilinogen measurement by test strip (mass/volume)2019-10-22 21:10:00* Test Item Value Reference Range Interpretation Comments Urine Urobilinogen (test code = 60625-7) 0.2 0.2-1 [facility] CenterU[facility] total bilirubin measurement (mass/volume)2019-10-22 21:10:00* Test Item Value Reference Range Interpretation Comments Urine Bilirubin (test code = 1978-6) NEGATIVE NEGATIVE [facility] CenterU[facility] erythrocytes feqsuojyx2597-69-66 21:10:00* Test Item Value Reference Range Interpretation Comments Urine Blood (test code = 61155-4) LARGE NEGATIVE [facility] CenterAutomated urine sediment leukocyte count by microscopy (number/high power field)2019-10-22 21:10:00* Test Item Value Reference Range Interpretation Comments Urine WBC (test code = 5821-4) 6-10 0-5 [facility] CenterErythrocytes detection in urine sediment by light mhfrszomgn2232-60-71 21:10:00* Test Item Value Reference Range Interpretation Comments Urine RBC (test code = 86413-5) 11-20 0-5 [facility] CenterBacteria detection in urine sediment by light qfzvqdohhy1477-07-32 21:10:00* Test Item Value Reference Range Interpretation Comments Urine Bacteria (test code = 37444-5) MANY NONE [facility] CenterEpithelial cells detection in urine sediment by light ulbcjhkejx6819-09-24 21:10:00* Test Item Value Reference Range Interpretation Comments Urine Epithelial Cells (test code = 82135-5) NONE NONE [facility] CenterUrine color udxjgcvhzwchc1312-94-52 21:10:00* Test Item Value Reference Range Interpretation Comments Urine Color (test code = 5778-6) YELLOW YELLOW [facility] CenterUrine kkxyxxv2826-17-86 21:10:00* Test Item Value Reference Range Interpretation Comments Urine Clarity (test code = 14046-3) SL CLOUDY CLEAR [facility] [place] gravity of Urine by Test strip 2019-10-22 21:10:00* Test Item Value Reference Range Interpretation Comments Urine Specific Notus (test code = 5811-5) 1.025 1.010-1.02 5 [facility] CenterU[facility] pH measurement by automated test bgyyx1179-41-58 21:10:00* Test Item Value Reference Range Interpretation Comments Urine pH (test code = 17218-5) 5.5 5-7 [facility] CenterUrine leukocyte esterase detection by ezayxtkp5701-89-78 21:10:00* Test Item Value Reference Range Interpretation Comments Urine Leukocyte Esterase (test code = 5799-2) NEGATIVE NEGATIVE [facility] CenterUrine nitrite vgnvowvdh0831-35-44 21:10:00* Test Item Value Reference Range Interpretation Comments Urine Nitrite (test code = 61800-1) POSITIVE NEGATIVE [facility] CenterUrine protein measurement by test strip (mass/volume)2019-10-22 21:10:00* Test Item Value Reference Range Interpretation Comments Urine Protein (test code = 5804-0) >=300 NEGATIVE [facility] CenterUrine glucose coclvcpwj9950-55-37 21:10:00* Test Item Value Reference Range Interpretation Comments Urine Glucose (UA) (test code = 2349-9) NEGATIVE NEGATIVE [facility] CenterUrine ketones detection by automated test jwklh5607-70-81 21:10:00* Test Item Value Reference Range Interpretation Comments Urine Ketones (test code = 44601-3) 1+ NEGATIVE [facility] CenterUrine urobilinogen measurement by test strip (mass/volume)2019-10-22 21:10:00* Test Item Value Reference Range Interpretation Comments Urine Urobilinogen (test code = 76682-4) 0.2 0.2-1 [facility] CenterUrine total bilirubin measurement (mass/volume)2019-10-22 21:10:00* Test Item Value Reference Range Interpretation Comments Urine Bilirubin (test code = 1978-6) NEGATIVE NEGATIVE [facility] CenterUrine erythrocytes qyugpbzpi7844-18-21 21:10:00* Test Item Value Reference Range Interpretation Comments Urine Blood (test code = 24003-4) LARGE NEGATIVE [facility] CenterAutomated urine sediment leukocyte count by microscopy (number/high power field)2019-10-22 21:10:00* Test Item Value Reference Range Interpretation Comments Urine WBC (test code = 5821-4) 6-10 0-5 [facility] CenterErythrocytes detection in urine sediment by light srxopanqhd5239-81-45 21:10:00* Test Item Value Reference Range Interpretation Comments Urine RBC (test code = 17467-9) 11-20 0-5 [facility] CenterBacteria detection in urine sediment by light uujyzzxfnr4236-56-96 21:10:00* Test Item Value Reference Range Interpretation Comments Urine Bacteria (test code = 78907-1) MANY NONE [facility] CenterEpithelial cells detection in urine sediment by light boazphtyow4373-06-15 21:10:00* Test Item Value Reference Range Interpretation Comments Urine Epithelial Cells (test code = 33541-3) NONE NONE [facility] CenterBedside Sruxdmc5131-58-00 12:13:00* Test Item Value Reference Range Interpretation Comments Bedside Glucose (test code = 33104-5) 297 70-120 H Meter ID: [id number] Palmas Medical CenterCapillary blood glucose measurement by glucometer (mass/volume)2019-06-03 10:30:00* Test Item Value Reference Range Interpretation Comments Bedside Glucose (test code = 16705-4) 297 70-120 Meter ID: [id number] [facility]mas Medical CenterCapillary blood glucose measurement by glucometer (mass/volume)2019-06-03 10:30:00* Test Item Value Reference Range Interpretation Comments Bedside Glucose (test code = 37113-3) 297 70-120 Meter ID: [id number] [place] [place]odium Level 2019-06-03 09:53:00* Test Item Value Reference Range Interpretation Comments Sodium Level (test code = 2951-2) 136 136-145 [facility] CenterPotassium Qzrob6295-21-40 09:53:00* Test Item Value Reference Range Interpretation Comments Potassium Level (test code = 2823-3) 3.7 3.5-5.1 [facility] CenterChloride Abimw0899-29-05 09:53:00* Test Item Value Reference Range Interpretation Comments Chloride Level (test code = 2075-0) 103 98-107 [facility] CenterCarbon Dioxide Rqela0460-75-83 09:53:00* Test Item Value Reference Range Interpretation Comments Carbon Dioxide Level (test code = 2028-9) 24 22-29 [facility] CenterAnion Ogh9736-37-33 09:53:00* Test Item Value Reference Range Interpretation Comments Anion Gap (test code = 76031-0) 12.7 8-16 [facility] CenterBlood Urea Vtevxgzg3799-82-70 09:53:00* Test Item Value Reference Range Interpretation Comments Blood Urea Nitrogen (test code = 3094-0) 16 7-26 [facility] CenterCreatinine2020-03-07 09:53:00* Test Item Value Reference Range Interpretation Comments Creatinine (test code = 2160-0) 1.30 0.72-1.25 H [facility] CenterBUN/Creatinine Trcbp9159-59-44 09:53:00* Test Item Value Reference Range Interpretation Comments BUN/Creatinine Ratio (test code = 3097-3) 12 6- [facility] CenterEstimat Glomerular Filtration Rate 2019-06-03 09:53:00* Test Item Value Reference Range Interpretation Comments Estimat Glomerular Filtration Rate (test code = 287209744) 54 >60 L Ranges were taken from the National Kidney Disease Education Program and the [facility] Kid[facility] Foundation literature.Reference ranges:60 or greater: Fprezn93-10 ( for 3 consecutive months): Chronic kidney disease 15 or less: Kidney failureLas Palmas Medical CenterGlucose Wkjhe0763-22-32 09:53:00* Test Item Value Reference Range Interpretation Comments Glucose Level (test code = OMH3712) 211 74-118 H [facility] CenterCalcium Syipe6728-16-32 09:53:00* Test Item Value Reference Range Interpretation Comments Calcium Level (test code = 87375-5) 9.0 8.4-10.2 [facility] CenterWhite Blood Zfzff0259-67-32 09:43:00* Test Item Value Reference Range Interpretation Comments White Blood Count (test code = 6690-2) 7.18 4.8-10.8 [facility] CenterRed Blood Cbwio4153-55-24 09:43:00* Test Item Value Reference Range Interpretation Comments Red Blood Count (test code = 789-8) 4.28 4.3-5.7 L [facility] CenterHemoglobin2020-03-07 09:43:00* Test Item Value Reference Range Interpretation Comments Hemoglobin (test code = 59055-3) 12.7 14.0-18.0 L [facility] CenterHematocrit2020-03-07 09:43:00* Test Item Value Reference Range Interpretation Comments Hematocrit (test code = 4544-3) 38.8 38.2-49.6 [facility] CenterMean Corpuscular Qzasdo8563-80-40 09:43:00* Test Item Value Reference Range Interpretation Comments Mean Corpuscular Volume (test code = 787-2) 90.7 81-99 [facility] CenterMean Corpuscular Mpfhbebges1640-85-15 09:43:00* Test Item Value Reference Range Interpretation Comments Mean Corpuscular Hemoglobin (test code = 785-6) 29.7 28-32 [facility] CenterMean Corpuscular Hemoglobin Concent 2019-06-03 09:43:00* Test Item Value Reference Range Interpretation Comments Mean Corpuscular Hemoglobin Concent (test code = 786-4) 32.7 31-35 [facility] CenterRed Cell Distribution Vrpgl7990-82-25 09:43:00* Test Item Value Reference Range Interpretation Comments Red Cell Distribution Width (test code = 83225-1) 13.5 11.7 -14.4 [facility] CenterPlatelet Najks2245-62-61 09:43:00* Test Item Value Reference Range Interpretation Comments Platelet Count (test code = 777-3) 162 140-360 [facility] CenterNeutrophils (%) (Auto)2019-06-03 09:43:00 * Test Item Value Reference Range Interpretation Comments Neutrophils (%) (Auto) (test code = 34399-5) 53.2 38.7-80.0 [facility] CenterLymphocytes (%) (Auto)2019-06-03 09:43:00 * Test Item Value Reference Range Interpretation Comments Lymphocytes (%) (Auto) (test code = 736-9) 32.7 18.0-39.1 [facility] CenterMonocytes (%) (Auto)2019-06-03 09:43:00* Test Item Value Reference Range Interpretation Comments Monocytes (%) (Auto) (test code = 5905-5) 13.2 4.4-11.3 H [facility] CenterEosinophils (%) (Auto)2019-06-03 09:43:00 * Test Item Value Reference Range Interpretation Comments Eosinophils (%) (Auto) (test code = 713-8) 0.4 0.0-6.0 [facility] CenterBasophils (%) (Auto)2019-06-03 09:43:00* Test Item Value Reference Range Interpretation Comments Basophils (%) (Auto) (test code = 706-2) 0.4 0.0-1.0 [facility] CenterIM GRANULOCYTES %2019-06-03 09:43:00* Test Item Value Reference Range Interpretation Comments IM GRANULOCYTES % (test code = IM GRANULOCYTES %) 0.1 0.0- 1.0 [facility] CenterNeutrophils # (Auto)2019-06-03 09:43:00* Test Item Value Reference Range Interpretation Comments Neutrophils # (Auto) (test code = 751-8) 3.8 2.1-6.9 [facility] CenterLymphocytes # (Auto)2019-06-03 09:43:00* Test Item Value Reference Range Interpretation Comments Lymphocytes # (Auto) (test code = 76092-5) 2.4 1.0-3.2 [facility] CenterMonocytes # (Auto)2019-06-03 09:43:00* Test Item Value Reference Range Interpretation Comments Monocytes # (Auto) (test code = 742-7) 1.0 0.2-0.8 H [facility] CenterEosinophils # (Auto)2019-06-03 09:43:00* Test Item Value Reference Range Interpretation Comments Eosinophils # (Auto) (test code = 711-2) 0.0 0.0-0.4 [facility] CenterBasophils # (Auto)2019-06-03 09:43:00* Test Item Value Reference Range Interpretation Comments Basophils # (Auto) (test code = 704-7) 0.0 0.0-0.1 [facility] CenterAbsolute Immature Granulocyte (auto 2019-06-03 09:43:00* Test Item Value Reference Range Interpretation Comments Absolute Immature Granulocyte (auto (kelley t code = Absolute Immature Granulocyte (auto) 0.01 0-0.1 [facility] CenterBlst. [facility] leukocytes automated count (number/volume)2019-06-03 08:11:00* Test Item Value Reference Range Interpretation Comments White Blood Count (test code = 6690-2) 7.18 4.8-10.8 [facility] CenterBlood erythrocytes automated count (number/volume)2019-06-03 08:11:00* Test Item Value Reference Range Interpretation Comments Red Blood Count (test code = 789-8) 4.28 4.3-5.7 [facility] CenterBlood hemoglobin measurement (moles/volume)2019-06-03 08:11:00* Test Item Value Reference Range Interpretation Comments Hemoglobin (test code = 06318-2) 12.7 14.0-18.0 [facility] CenterAutomated blood hematocrit (volume fraction)2019-06-03 08:11:00* Test Item Value Reference Range Interpretation Comments Hematocrit (test code = 4544-3) 38.8 38.2-49.6 [facility] CenterAutomated erythrocyte mean corpuscular seqrhc7961-17-94 08:11:00* Test Item Value Reference Range Interpretation Comments Mean Corpuscular Volume (test code = 787-2) 90.7 81-99 [facility] CenterAutomated erythrocyte mean corpuscular hemoglobin (mass per erythrocyte)2019-06-03 08:11:00* Test Item Value Reference Range Interpretation Comments Mean Corpuscular Hemoglobin (test code = 785-6) 29.7 28-32 [facility] CenterAutomated erythrocyte mean corpuscular hemoglobin concentration measurement (mass/volume)2019-06-03 08:11:00* Test Item Value Reference Range Interpretation Comments Mean Corpuscular Hemoglobin Concent (test code = 786-4) 32.7 31-35 [facility] CenterRDW PglSh-Cyp5884-42-07 08:11:00* Test Item Value Reference Range Interpretation Comments Red Cell Distribution Width (test code = 22770-1) 13.5 11.7 -14.4 [facility] CenterAutomated blood platelet count (count/volume)2019-06-03 08:11:00* Test Item Value Reference Range Interpretation Comments Platelet Count (test code = 777-3) 162 140-360 [facility] CenterAutomated blood segmented neutrophil count as percentage of total ijjclgulqp5987-69-77 08:11:00* Test Item Value Reference Range Interpretation Comments Neutrophils (%) (Auto) (test code = 64792-0) 53.2 38.7-80.0 [facility] CenterAutomated blood lymphocyte count as percentage ot total biucvwcosx3667-10-13 08:11:00* Test Item Value Reference Range Interpretation Comments Lymphocytes (%) (Auto) (test code = 736-9) 32.7 18.0-39.1 [facility] CenterAutomated blood monocyte count as percentage of total oafsdaxujl1583-04-51 08:11:00* Test Item Value Reference Range Interpretation Comments Monocytes (%) (Auto) (test code = 5905-5) 13.2 4.4-11.3 [facility] CenterAutomated blood eosinophil count as percentage of total uppouztzfg6811-06-90 08:11:00* Test Item Value Reference Range Interpretation Comments Eosinophils (%) (Auto) (test code = 713-8) 0.4 0.0-6.0 [facility] CenterAutomated blood basophil count as percentage of total kswtjqmjdl5543-81-50 08:11:00* Test Item Value Reference Range Interpretation Comments Basophils (%) (Auto) (test code = 706-2) 0.4 0.0-1.0 [facility] CenterFluoroscopic procedure less than one hour klyxjics6470-61-69 08:11:00* Test Item Value Reference Range Interpretation Comments IM GRANULOCYTES % (test code = IM GRANULOCYTES %) 0.1 0.0- 1.0 [facility] CenterAutomated blood neutrophil count 2019-06-03 08:11:00* Test Item Value Reference Range Interpretation Comments Neutrophils # (Auto) (test code = 751-8) 3.8 2.1-6.9 [facility] CenterBlood lymphocytes count (number/volume) 2019-06-03 08:11:00* Test Item Value Reference Range Interpretation Comments Lymphocytes # (Auto) (test code = 15769-8) 2.4 1.0-3.2 [facility] CenterBlst. [facility] monocytes automated count (number/volume)2019-06-03 08:11:00* Test Item Value Reference Range Interpretation Comments Monocytes # (Auto) (test code = 742-7) 1.0 0.2-0.8 [facility] CenterAutomated blood eosinophil count 2019-06-03 08:11:00* Test Item Value Reference Range Interpretation Comments Eosinophils # (Auto) (test code = 711-2) 0.0 0.0-0.4 [facility] CenterAutomated blood basophil count (count/volume)2019-06-03 08:11:00* Test Item Value Reference Range Interpretation Comments Basophils # (Auto) (test code = 704-7) 0.0 0.0-0.1 [facility] CenterFluoroscopic procedure less than one hour jdtqpjim4203-99-90 08:11:00* Test Item Value Reference Range Interpretation Comments Absolute Immature Granulocyte (auto (kelley t code = Absolute Immature Granulocyte (auto) 0.01 0-0.[address] [facility] [place], TXerum or plasma sodium measurement (moles/volume)2019-06-03 08:11:00* Test Item Value Reference Range Interpretation Comments Sodium Level (test code = 2951-2) 136 136-[address] [facility] [place], TXerum or plasma potassium measurement (moles/volume)2019-06-03 08:11:00* Test Item Value Reference Range Interpretation Comments Potassium Level (test code = 2823-3) 3.7 3.5-5.[address] [facility] [place], TXerum or plasma chloride measurement (moles/volume)2019-06-03 08:11:00* Test Item Value Reference Range Interpretation Comments Chloride Level (test code = 2075-0) 103 98-[address] [facility] [place], TXerum or plasma carbon dioxide, total measurement (moles/volume)2019-06-03 08:11:00* Test Item Value Reference Range Interpretation Comments Carbon Dioxide Level (test code = 2028-9) 24 22-[address] [facility] [place], TXerum or plasma anion azm1915-28-98 08:11:00* Test Item Value Reference Range Interpretation Comments Anion Gap (test code = 21459-7) 12.7 8-[address] [facility] [place], TXerum or plasma urea nitrogen measurement (mass/volume)2019-06-03 08:11:00* Test Item Value Reference Range Interpretation Comments Blood Urea Nitrogen (test code = 3094-0) 16 7-[address] [facility] [place], TXerum or plasma creatinine measurement (mass/volume)2019-06-03 08:11:00* Test Item Value Reference Range Interpretation Comments Creatinine (test code = 2160-0) 1.30 0.72-1.[address] [facility] [place], TXerum or plasma urea nitrogen/creatinine mass fctyq7600-20-16 08:11:00* Test Item Value Reference Range Interpretation Comments BUN/Creatinine Ratio (test code = 3097-3) 12 6-25 [facility] CenterEstimated glomerular filtration rate (GFR) lwcynufutbgvz1996-94-44 08:11:00* Test Item Value Reference Range Interpretation Comments Estimat Glomerular Filtration Rate (test code = 301180055) 54 >60 Ranges were taken from the National Kidney Disease Education Program and the [facility] literature.Reference ranges:60 or greater: Kmzswy66-78 ( for 3 consecutive months): Chronic kidney disease 15 or less: Kidney failureLas [facility]mas Medical CenterGlucose cqiklrbfaox9009-79-84 08:11:00* Test Item Value Reference Range Interpretation Comments Glucose Level (test code = NAX8178) 211 74-[address] [facility] [place], TXerum or plasma calcium measurement (mass/volume)2019-06-03 08:11:00* Test Item Value Reference Range Interpretation Comments Calcium Level (test code = 66822-6) 9.0 8.4-10.2 [facility] CenterBlood leukocytes automated count (number/volume)2019-06-03 08:11:00* Test Item Value Reference Range Interpretation Comments White Blood Count (test code = 6690-2) 7.18 4.8-10.8 [facility] CenterBlood erythrocytes automated count (number/volume)2019-06-03 08:11:00* Test Item Value Reference Range Interpretation Comments Red Blood Count (test code = 789-8) 4.28 4.3-5.7 [facility] CenterBlood hemoglobin measurement (moles/volume)2019-06-03 08:11:00* Test Item Value Reference Range Interpretation Comments Hemoglobin (test code = 67751-0) 12.7 14.0-18.0 [facility] CenterAutomated blood hematocrit (volume fraction)2019-06-03 08:11:00* Test Item Value Reference Range Interpretation Comments Hematocrit (test code = 4544-3) 38.8 38.2-49.6 [facility] CenterAutomated erythrocyte mean corpuscular nwcgfa7216-87-41 08:11:00* Test Item Value Reference Range Interpretation Comments Mean Corpuscular Volume (test code = 787-2) 90.7 81-99 [facility] CenterAutomated erythrocyte mean corpuscular hemoglobin (mass per erythrocyte)2019-06-03 08:11:00* Test Item Value Reference Range Interpretation Comments Mean Corpuscular Hemoglobin (test code = 785-6) 29.7 28-32 [facility] CenterAutomated erythrocyte mean corpuscular hemoglobin concentration measurement (mass/volume)2019-06-03 08:11:00* Test Item Value Reference Range Interpretation Comments Mean Corpuscular Hemoglobin Concent (test code = 786-4) 32.7 31-35 [facility] CenterRDW IigUg-Ful3095-52-07 08:11:00* Test Item Value Reference Range Interpretation Comments Red Cell Distribution Width (test code = 76477-2) 13.5 11.7 -14.4 [facility] CenterAutomated blood platelet count (count/volume)2019-06-03 08:11:00* Test Item Value Reference Range Interpretation Comments Platelet Count (test code = 777-3) 162 140-360 [facility] CenterAutomated blood segmented neutrophil count as percentage of total bslywhgtxk0460-23-51 08:11:00* Test Item Value Reference Range Interpretation Comments Neutrophils (%) (Auto) (test code = 80783-2) 53.2 38.7-80.0 [facility] blood lymphocyte count as percentage ot total okdculfdzh8698-99-38 08:11:00* Test Item Value Reference Range Interpretation Comments Lymphocytes (%) (Auto) (test code = 736-9) 32.7 18.0-39.1 [facility] CenterAutomated blood monocyte count as percentage of total dwftzmqpyb7549-69-49 08:11:00* Test Item Value Reference Range Interpretation Comments Monocytes (%) (Auto) (test code = 5905-5) 13.2 4.4-11.3 [facility] CenterAutunc healthed blood eosinophil count as percentage of total qjzdvuroac1586-97-91 08:11:00* Test Item Value Reference Range Interpretation Comments Eosinophils (%) (Auto) (test code = 713-8) 0.4 0.0-6.0 [facility] CenterAutomated blood basophil count as percentage of total ydswlifpkz0708-74-54 08:11:00* Test Item Value Reference Range Interpretation Comments Basophils (%) (Auto) (test code = 706-2) 0.4 0.0-1.0 [facility] CenterFluoroscopic procedure less than one hour airopiya7259-03-01 08:11:00* Test Item Value Reference Range Interpretation Comments IM GRANULOCYTES % (test code = IM GRANULOCYTES %) 0.1 0.0- 1.0 [facility] CenterAutomated blood neutrophil count 2019-06-03 08:11:00* Test Item Value Reference Range Interpretation Comments Neutrophils # (Auto) (test code = 751-8) 3.8 2.1-6.9 [facility] CenterBlood lymphocytes count (number/volume) 2019-06-03 08:11:00* Test Item Value Reference Range Interpretation Comments Lymphocytes # (Auto) (test code = 31533-6) 2.4 1.0-3.2 [facility] CenterBlood monocytes automated count (number/volume)2019-06-03 08:11:00* Test Item Value Reference Range Interpretation Comments Monocytes # (Auto) (test code = 742-7) 1.0 0.2-0.8 [facility] CenterAutomated blood eosinophil count 2019-06-03 08:11:00* Test Item Value Reference Range Interpretation Comments Eosinophils # (Auto) (test code = 711-2) 0.0 0.0-0.4 [facility] CenterAutomated blood basophil count (count/volume)2019-06-03 08:11:00* Test Item Value Reference Range Interpretation Comments Basophils # (Auto) (test code = 704-7) 0.0 0.0-0.1 [facility] CenterFluoroscopic procedure less than one hour juutctbh2810-43-28 08:11:00* Test Item Value Reference Range Interpretation Comments Absolute Immature Granulocyte (auto (kelley t code = Absolute Immature Granulocyte (auto) 0.01 0-0.[address] [facility] [place], TXerum or plasma sodium measurement (moles/volume)2019-06-03 08:11:00* Test Item Value Reference Range Interpretation Comments Sodium Level (test code = 2951-2) 136 136-[address] [facility] [place], TXerum or plasma potassium measurement (moles/volume)2019-06-03 08:11:00* Test Item Value Reference Range Interpretation Comments Potassium Level (test code = 2823-3) 3.7 3.5-5.[address] [facility] [place], TXerum or plasma chloride measurement (moles/volume)2019-06-03 08:11:00* Test Item Value Reference Range Interpretation Comments Chloride Level (test code = 2075-0) 103 98-[address] [facility] [place], TXerum or plasma carbon dioxide, total measurement (moles/volume)2019-06-03 08:11:00* Test Item Value Reference Range Interpretation Comments Carbon Dioxide Level (test code = 2028-9) 24 22-[address] [facility] [place], TXerum or plasma anion trg5184-04-11 08:11:00* Test Item Value Reference Range Interpretation Comments Anion Gap (test code = 16199-7) 12.7 8-[address] [facility] [place], TXerum or plasma urea nitrogen measurement (mass/volume)2019-06-03 08:11:00* Test Item Value Reference Range Interpretation Comments Blood Urea Nitrogen (test code = 3094-0) 16 7-[address] [facility] [place], TXerum or plasma creatinine measurement (mass/volume)2019-06-03 08:11:00* Test Item Value Reference Range Interpretation Comments Creatinine (test code = 2160-0) 1.30 0.72-1.[address] [facility] [place], TXerum or plasma urea nitrogen/creatinine mass zwoeo7540-91-07 08:11:00* Test Item Value Reference Range Interpretation Comments BUN/Creatinine Ratio (test code = 3097-3) 12 6-25 [facility] CenterEstimated glomerular filtration rate (GFR) kiqohangoafuo6750-40-80 08:11:00* Test Item Value Reference Range Interpretation Comments Estimat Glomerular Filtration Rate (test code = 229665059) 54 >60 Ranges were taken from the National Kidney Disease Education Program and the [facility] Kidney Foundation literature.Reference ranges:60 or greater: Xyteza53-75 ( for 3 consecutive months): Chronic kidney disease 15 or less: Kidney failureLas Palmas Medical CenterGlucose iubzcnhxsuo9187-71-99 08:11:00* Test Item Value Reference Range Interpretation Comments Glucose Level (test code = ILM3472) 211 74-[address] [facility] [place], TXerum or plasma calcium measurement (mass/volume)2019-06-03 08:11:00* Test Item Value Reference Range Interpretation Comments Calcium Level (test code = 20006-9) 9.0 8.4-10.2 [facility] CenterBlood Nsnmsvb4336-87-36 16:44:00* Test Item Value Reference Range Interpretation Comments Blood Culture (test code = 18974843) NO GROWTH AFTER 24 HOURS [facility] CenterCreatine Kinase AC1924-11-73 15:29:00* Test Item Value Reference Range Interpretation Comments Creatine Kinase MB (test code = 96462-1) 2.50 0-5.0 [facility] CenterTroponin I0916-62-73 15:29:00* Test Item Value Reference Range Interpretation Comments Troponin I (test code = AWT4091) 0.017 0-0.300 [facility] CenterCreatine Fgdzuo0145-70-04 15:26:00* Test Item Value Reference Range Interpretation Comments Creatine Kinase (test code = 2157-6) 470 30-[address] [facility] [place], TXerum or plasma creatine kinase measurement (enzymatic activity/volume)2019-06-02 13:36:00* Test Item Value Reference Range Interpretation Comments Creatine Kinase (test code = 2157-6) 470 30-[address] [facility] [place], TXerum or plasma creatine kinase MB measurement (mass/volume)2019-06-02 13:36:00* Test Item Value Reference Range Interpretation Comments Creatine Kinase MB (test code = 99609-1) 2.50 0-5.0 [facility] CenterTroponin I measurement by highly sensitive enzyme ljxqiclczah7248-95-22 13:36:00* Test Item Value Reference Range Interpretation Comments Troponin I (test code = 90458-4) 0.017 0-0.[address] [facility] [place], TXerum or plasma creatine kinase measurement (enzymatic activity/volume)2019-06-02 13:36:00* Test Item Value Reference Range Interpretation Comments Creatine Kinase (test code = 2157-6) 470 30-[address] [facility] [place], TXerum or plasma creatine kinase MB measurement (mass/volume)2019-06-02 13:36:00* Test Item Value Reference Range Interpretation Comments Creatine Kinase MB (test code = 69454-9) 2.50 0-5.0 [facility] CenterTroponin I measurement by highly sensitive enzyme vpbkzewzawr9523-77-13 13:36:00* Test Item Value Reference Range Interpretation Comments Troponin I (test code = 12102-1) 0.017 0-0.300 [facility] CenterHemoglobin A1c Qdlfryo9499-73-72 11:09:00 * Test Item Value Reference Range Interpretation Comments Hemoglobin A1c Percent (test code = Hemoglobin A1c Percent) 7.2 4.0-7.0 H [facility] CenterTriglycerides Avgpu3466-89-75 11:01:00* Test Item Value Reference Range Interpretation Comments Triglycerides Level (test code = 2571-8) 77 0-149 [facility] CenterCholesterol Eirlq5702-40-19 11:01:00* Test Item Value Reference Range Interpretation Comments Cholesterol Level (test code = 2093-3) 101 0-199 Less than 200 mg/dL Low Zhxe416 - 239 mg/dL Borderline Jwqj386 m g/dl and greater High Risk [facility] CenterLDL Hrwoxjjlfgk3290-06-73 11:01:00* Test Item Value Reference Range Interpretation Comments LDL Cholesterol (test code = 2089-1) 57 60-130 L [facility] CenterHDL Pfrkiyaykte4237-20-94 11:01:00* Test Item Value Reference Range Interpretation Comments HDL Cholesterol (test code = 2085-9) 29 40-60 L [facility] CenterCholesterol/HDL Wgyyw8943-48-20 11:01:00 * Test Item Value Reference Range Interpretation Comments Cholesterol/HDL Ratio (test code = 9830-1) 3.5 3.9-4.7 L [facility] CenterTotal Nybmejygt0118-53-89 07:04:00* Test Item Value Reference Range Interpretation Comments Total Bilirubin (test code = 1975-2) 0.4 0.2-1.2 [facility] CenterAspartate Amino Transf (AST/SGOT) 2019-06-02 07:04:00* Test Item Value Reference Range Interpretation Comments Aspartate Amino Transf (AST/SGOT) (test code = Aspartate Amino Transf (AST/SGOT)) 23 5-34 [facility] CenterAlanine Aminotransferase (ALT/SGPT) 2019-06-02 07:04:00* Test Item Value Reference Range Interpretation Comments Alanine Aminotransferase (ALT/SGPT) (test code = 1742-6) 17 0-55 [facility] CenterTotal Nbymjnm2521-12-59 07:04:00* Test Item Value Reference Range Interpretation Comments Total Protein (test code = 2885-2) 7.3 6.5-8.1 [facility] CenterAlbumin2020-03-06 07:04:00* Test Item Value Reference Range Interpretation Comments Albumin (test code = 1751-7) 3.3 3.5-5.0 L [facility] CenterGlobulin2020-03-06 07:04:00* Test Item Value Reference Range Interpretation Comments Globulin (test code = 77655-2) 4.0 2.3-3.5 H [facility] CenterAlbumin/Globulin Furyv9526-45-73 07:04:00 * Test Item Value Reference Range Interpretation Comments Albumin/Globulin Ratio (test code = 1759-0) 0.8 0.8-2.0 [facility] CenterAlkaline Pqwswddjcyf3488-60-74 07:04:00* Test Item Value Reference Range Interpretation Comments Alkaline Phosphatase (test code = 6768-6) 70 40-150 [facility] CenterFluoroscopic procedure less than one hour ynzproel9303-91-25 05:00:00* Test Item Value Reference Range Interpretation Comments Hemoglobin A1c Percent (test code = Hemoglobin A1c Percent) 7.2 4.0-7.[address] [facility] [place], TXerum or plasma triglyceride measurement (mass/volume)2019-06-02 05:00:00* Test Item Value Reference Range Interpretation Comments Triglycerides Level (test code = 2571-8) 77 0-[address] [facility] [place], TXerum or plasma cholesterol measurement (mass/volume)2019-06-02 05:00:00* Test Item Value Reference Range Interpretation Comments Cholesterol Level (test code = 2093-3) 101 0-199 Less than 200 mg/dL Low Txnu085 - 239 mg/dL Borderline Yufh575 m g/dl and greater High Risk [facility] [place], TXerum or plasma cholesterol in LDL measurement (mass/volume) 2019-06-02 05:00:00* Test Item Value Reference Range Interpretation Comments LDL Cholesterol (test code = 2089-1) 57 60-[address] [facility] [place], TXerum or plasma cholesterol in HDL measurement (mass/volume)2019-06-02 05:00:00* Test Item Value Reference Range Interpretation Comments HDL Cholesterol (test code = 2085-9) 29 40-[address] [facility] [place], TXerum or plasma total cholesterol/cholesterol in HDL mass zchfz4578-62-06 05:00:00* Test Item Value Reference Range Interpretation Comments Cholesterol/HDL Ratio (test code = 9830-1) 3.5 3.9-4.7 [facility] CenterFluoroscopic procedure less than one hour vdvhlmph8349-27-24 05:00:00* Test Item Value Reference Range Interpretation Comments Hemoglobin A1c Percent (test code = Hemoglobin A1c Percent) 7.2 4.0-7.[address] [facility] [place], TXerum or plasma triglyceride measurement (mass/volume)2019-06-02 05:00:00* Test Item Value Reference Range Interpretation Comments Triglycerides Level (test code = 2571-8) 77 0-[address] [facility] [place], TXerum or plasma cholesterol measurement (mass/volume)2019-06-02 05:00:00* Test Item Value Reference Range Interpretation Comments Cholesterol Level (test code = 2093-3) 101 0-199 Less than 200 mg/dL Low Vhre214 - 239 mg/dL Borderline Kvfb338 m g/dl and greater High Risk [facility] [place], TXerum or plasma cholesterol in LDL measurement (mass/volume) 2019-06-02 05:00:00* Test Item Value Reference Range Interpretation Comments LDL Cholesterol (test code = 2089-1) 57 60-[address] [facility] [place], TXerum or plasma cholesterol in HDL measurement (mass/volume)2019-06-02 05:00:00* Test Item Value Reference Range Interpretation Comments HDL Cholesterol (test code = 2085-9) 29 40-[address] [facility] [place], TXerum or plasma total cholesterol/cholesterol in HDL mass exrfr4256-93-50 05:00:00* Test Item Value Reference Range Interpretation Comments Cholesterol/HDL Ratio (test code = 9830-1) 3.5 3.9-4.[address] [facility] [place], TXerum or plasma total bilirubin measurement (mass/volume)2019-06-02 04:00:00* Test Item Value Reference Range Interpretation Comments Total Bilirubin (test code = 1975-2) 0.4 0.2-1.2 [facility] CenterFluoroscopic procedure less than one hour nngemtfw0181-77-99 04:00:00* Test Item Value Reference Range Interpretation Comments Aspartate Amino Transf (AST/SGOT) (test code = Aspartate Amino Transf (AST/SGOT)) 23 5-[address] [facility] [place], TXerum or plasma alanine aminotransferase measurement (enzymatic activity/volume)2019-06-02 04:00:00* Test Item Value Reference Range Interpretation Comments Alanine Aminotransferase (ALT/SGPT) (test code = 1742-6) 17 0-[address] [facility] [place], TXerum or plasma protein measurement (mass/volume)2019-06-02 04:00:00* Test Item Value Reference Range Interpretation Comments Total Protein (test code = 2885-2) 7.3 6.5-8.[address] [facility] [place], TXerum or plasma albumin measurement (mass/volume)2019-06-02 04:00:00* Test Item Value Reference Range Interpretation Comments Albumin (test code = 1751-7) 3.3 3.5-5.0 [facility] CenterPlasma globulin measurement (mass/volume) 2019-06-02 04:00:00* Test Item Value Reference Range Interpretation Comments Globulin (test code = 25620-1) 4.0 2.3-3.[address] [facility] [place], TXerum or plasma albumin/globulin mass xxdje0060-32-97 04:00:00* Test Item Value Reference Range Interpretation Comments Albumin/Globulin Ratio (test code = 1759-0) 0.8 0.8-2.[address] [facility] [place], TXerum or plasma alkaline phosphatase measurement (enzymatic activity/volume)2019-06-02 04:00:00* Test Item Value Reference Range Interpretation Comments Alkaline Phosphatase (test code = 6768-6) 70 40-[address] [facility] [place], TXerum or plasma total bilirubin measurement (mass/volume)2019-06-02 04:00:00* Test Item Value Reference Range Interpretation Comments Total Bilirubin (test code = 1975-2) 0.4 0.2-1.2 [facility] CenterFluoroscopic procedure less than one hour qlfdpgzz2284-81-71 04:00:00* Test Item Value Reference Range Interpretation Comments Aspartate Amino Transf (AST/SGOT) (test code = Aspartate Amino Transf (AST/SGOT)) 23 5-[address] [facility] [place], TXerum or plasma alanine aminotransferase measurement (enzymatic activity/volume)2019-06-02 04:00:00* Test Item Value Reference Range Interpretation Comments Alanine Aminotransferase (ALT/SGPT) (test code = 1742-6) 17 0-[address] [facility] [place], TXerum or plasma protein measurement (mass/volume)2019-06-02 04:00:00* Test Item Value Reference Range Interpretation Comments Total Protein (test code = 2885-2) 7.3 6.5-8.[address] [facility] [place], TXerum or plasma albumin measurement (mass/volume)2019-06-02 04:00:00* Test Item Value Reference Range Interpretation Comments Albumin (test code = 1751-7) 3.3 3.5-5.0 [facility] CenterPlasma globulin measurement (mass/volume) 2019-06-02 04:00:00* Test Item Value Reference Range Interpretation Comments Globulin (test code = 01172-2) 4.0 2.3-3.[address] [facility] [place], TXerum or plasma albumin/globulin mass gxdav4465-31-39 04:00:00* Test Item Value Reference Range Interpretation Comments Albumin/Globulin Ratio (test code = 1759-0) 0.8 0.8-2.[address] [facility] [place], TXerum or plasma alkaline phosphatase measurement (enzymatic activity/volume)2019-06-02 04:00:00* Test Item Value Reference Range Interpretation Comments Alkaline Phosphatase (test code = 6768-6) 70 40-150 [facility] CenterInfluenza Virus Types A,B Antigen 2019-06-01 21:10:00* Test Item Value Reference Range Interpretation Comments Influenza Virus Types A,B Antigen (test code = 99814-7) POSITIVE FLU A NEGATIVE H Results called to CRISTI MCBRIDE at 2109 on 06/01/19 by TANJA DOWNING. [place].Res ults LFT MSG TO [facility] in infection control at 210806/01/19 by TANJA GARZA.[facility] CenterGroup A Streptococcus Screen 2019-06-01 20:59:00* Test Item Value Reference Range Interpretation Comments Group A Streptococcus Screen (test code = 36631-7) NEGATIVE NEG ATIVE [facility] CenterInfluenza virus A and B antigen identification by vofzgeomsswryltehp8980-57-22 19:20:00* Test Item Value Reference Range Interpretation Comments Influenza Virus Types A,B Antigen (test code = 75734-3) POSITIVE FLU A NEGATIVE Results called to CRISTI MCBRIDE at 210806/01/19 by TANJA DOWNING. [place].Res ults LFT MSG TO [facility] in infection control at 210806/01/19 [address] TAN[address]ZA.[facility] [place], TXtreptococcus pyogenes antigen detection in lfdnwe3066-11-16 19:20:00* Test Item Value Reference Range Interpretation Comments Group A Streptococcus Screen (test code = 75082-0) NEGATIVE NEG ATIVE [facility] CenterInfluenza virus A and B antigen identification by ejdjirifazmndfzrwr9649-70-64 19:20:00* Test Item Value Reference Range Interpretation Comments Influenza Virus Types A,B Antigen (test code = 60715-8) POSITIVE FLU A NEGATIVE Results called to CRISTI MCBRIDE at 210806/01/19 by TANJA DOWNING. [place].Res ults LFT MSG TO [facility] in infection control at 210806/01/19 [address] T[address]ZA.[facility] [place], TXtreptococcus pyogenes antigen detection in fmrqye5209-16-21 19:20:00* Test Item Value Reference Range Interpretation Comments Group A Streptococcus Screen (test code = 18587-2) NEGATIVE NEG ATIVE [facility] CenterUrine BKY2187-60-35 18:20:00* Test Item Value Reference Range Interpretation Comments Urine WBC (test code = 5821-4) 0-5 0-5 [facility] CenterUrine [id number] 18:20:00* Test Item Value Reference Range Interpretation Comments Urine RBC (test code = 04628-4) 0-5 0-5 [facility] CenterU[facility] Ezmomopi5465-99-35 18:20:00* Test Item Value Reference Range Interpretation Comments Urine Bacteria (test code = 78558-9) MANY NONE H [facility] CenterUrine Epithelial Geuaj0332-48-58 18:20:00 * Test Item Value Reference Range Interpretation Comments Urine Epithelial Cells (test code = 50830-9) FEW NONE [facility] CenterUrine Bbags1802-13-00 18:07:00* Test Item Value Reference Range Interpretation Comments Urine Color (test code = 5778-6) YELLOW YELLOW [facility] CenterUrine Zzcpaes9152-12-87 18:07:00* Test Item Value Reference Range Interpretation Comments Urine Clarity (test code = 67900-1) SL CLOUDY CLEAR [facility] Specific [id number] 18:07:00 * Test Item Value Reference Range Interpretation Comments Urine Specific Notus (test code = 5811-5) 1.020 1.010-1.02 5 [facility] [id number] 18:07:00* Test Item Value Reference Range Interpretation Comments Urine pH (test code = 96327-5) 5.5 5-7 [facility] Leukocyte [id number] 18:07:00* Test Item Value Reference Range Interpretation Comments Urine Leukocyte Esterase (test code = 5799-2) TRACE NEGATIVE [facility] [id number] 18:07:00* Test Item Value Reference Range Interpretation Comments Urine Nitrite (test code = 11618-5) NEGATIVE NEGATIVE [facility] [id number] 18:07:00* Test Item Value Reference Range Interpretation Comments Urine Protein (test code = 5804-0) TRACE NEGATIVE [facility] Glucose (UA)2019-06-01 18:07:00* Test Item Value Reference Range Interpretation Comments Urine Glucose (UA) (test code = 2349-9) NEGATIVE NEGATIVE [facility] [id number] 18:07:00* Test Item Value Reference Range Interpretation Comments Urine Ketones (test code = 24773-9) NEGATIVE NEGATIVE [facility] Qsyengbgeoej4292-91-46 18:07:00* Test Item Value Reference Range Interpretation Comments Urine Urobilinogen (test code = 88383-4) 0.2 0.2-1 [facility] Yacqgycxd9313-13-51 18:07:00* Test Item Value Reference Range Interpretation Comments Urine Bilirubin (test code = 1978-6) NEGATIVE NEGATIVE [facility] Yqnkm2784-32-08 18:07:00* Test Item Value Reference Range Interpretation Comments Urine Blood (test code = 40056-0) TRACE NEGATIVE H [facility] CenterB-Type Natriuretic Texjuxf7931-86-43 17:42:00* Test Item Value Reference Range Interpretation Comments B-Type Natriuretic Peptide (test code = 72771-2) 58.0 0-100 [facility]Magn[facility] Kugyp0318-62-22 17:10:00* Test Item Value Reference Range Interpretation Comments Magnesium Level (test code = 50238-2) 1.7 1.3-2.1 [facility]2019-06-01 17:07:00 [facility] [address] [address] Patient Name: PREM VALLEJO MR #: [id number] : 1945 Age/Sex: 73/M Req #: [id number] Adm Physician: Ordered by: ANNIE CHAVES MD Report #: [id number] Location: ER Room/Bed: Procedure: [id number] DX/CH EST SINGLE (PORTABLE) Exam Date: 06/01/19 Exam Time: 1620 REPORT STATUS: Signed EXAM INATION: CHEST SINGLE (PORTABLE) INDICATION: Cough COMPARISON: No ne FINDINGS: LINES/TUBES:None LUNGS:The lungs are moderately inflated. Mild left basilar subsegmental atelectasis. No focal consolidation or pulmonary edema. PLEURA:No pleural effusion or pneumothorax. MEDIAS TINUM:The cardiomediastinal silhouette appears normal in size and shape. ZACK JAYME/SOFT TISSUES:No acute osseous injury. ABDOMEN:No free air under the tran phragm. IMPRESSION: No focal pneumonia or pulmonary edema. Left basil ar subsegmental atelectasis. Signed by: Vee Gayle MD on 06/01/2019 5:07 PM Dictated By: VEE GAYLE MD 06 COPY TO: ANNA CHAVES RD, MD Prothrombin Aqyy8920-14-04 17:00:00* Test Item Value Reference Range Interpretation Comments Prothrombin Time (test code = 5902-2) 15.0 11.9-14.5 H [facility] CenterProthromb Time International Ratio 2019-06-01 17:00:00* Test Item Value Reference Range Interpretation Comments Prothromb Time International Ratio (test code = 6301-6) 1.11 Oral Anticoagulant Therapy INR Values:1. Low Intensity Therapy 1.5 - 2.02 . Moderate Intensity Therapy 2.0 - 3.03. High Intensity Therapy(1) 2.5 - 3. 54. High Intensity Therapy(2) 3.0 - 4.05. Panic Value INR > 5.0 [facility] CenterActivated Partial Thromboplast Time 2019-06-01 17:00:00* Test Item Value Reference Range Interpretation Comments Activated Partial Thromboplast Time (test code = 82222-9) 33.2 23.8-35.5 [facility] CenterL[facility] Acid [id number] 17:00:00* Test Item Value Reference Range Interpretation Comments Lactic Acid Level (test code = Lactic Acid Level) 1.6 0.5- 2.0 [facility] CenterCT BRAIN [id number] 16:59:00 [facility] [address] [address] Patient Name: PREM VALLEJO MR #: [id number] : 1945 Age/Sex: 73/M Req #: [id number] Adm Physician: Ordered by: ANNIE CHAVES MD Report #: [id number] Location: ER Room/Bed: Procedure: [id number] CT/CT BRAIN WO Exam Date: 06/01/19 Exam Time: 1620 REPORT STATUS: Signed EXAMINATION: Hejoaquin vines CT HISTORY: Alteration of consciousness, possible stroke, history of TIA and prior stroke. COMPARISON: None available TECHNIQUE: Multidetector axi al images were obtained without contrast from the foramen magnum to the vertex . The images were reconstructed using brain and bone algorithms. Thin sectio n brain images were reformatted into coronal and sagittal planes. Image qual ity: Motion/streaking artifact limits the evaluation of the skull base and pos terior cranial fossa. Dose modulation, iterative reconstruction, and/or weight based adjustment of the mA/kV was utilized to reduce the radiation dose to as low as reasonably achievable. FINDINGS: Parenchyma: 1. Cortical subcortical encephalomalacia in the left medial occipital (cuneus, to a lesser extent lingual gyri) as well as the precuneus, associated compensato ry dilatation of the left occipital horn. This corresponds to a chronic infarc t along the left [employer] distribution as there is also a small chronic infarct in the left posterior thalamus. 2. Scattered white matter hypodensities, most li morgan nonspecific chronic microvascular ischemic changes. Small chronic lacunar infarct in the left caudate and lentiform nuclei. 3. No mass or hemorrhag e. No CT evidence of acute territorial vascular insult. Extra-a xial spaces:No abnormal density. No extra-axial fluid collections Brain volume: Normal for age. Ventricles: No hydrocephalus or displacement. Arteries: No density suggestive of thrombus. Dural sinuses: No ab normal density. Foramen magnum: No mass, Chiari malformation, or basilar invagination. Sella: No obvious mass. Paranasal/mastoid sinuse s: Imaged portions unremarkable. Skull/Scalp: No lytic or blastic lesion s. No fractures. IMPRESSION: 1. No acute intracranial hemorrhage or CT evidence of acute territorial cortical infarct. 2. Left occipital chron ic infarct. 3. Mild white matter chronic microvascular ischemic changes. Signed by: Dr. Deirdre Alejandro M.D. on 06/01/2019 5:10 PM Dictated By: DEIRDRE ALEJANDRO MD 09 Transcribed By: CHRISTOPHER on 06/01/191709 COPY TO: ANNIE CHAVES MD Prothrombin time (PT) in platelet poor plasma by coagulation [id number] 15:19:00* Test Item Value Reference Range Interpretation Comments Prothrombin Time (test code = 5902-2) 15.0 11.9-14.5 [facility] CenterINR in Platelet poor plasma by Coagulation [id number] 15:19:00* Test Item Value Reference Range Interpretation Comments Prothromb Time International Ratio (test code = 6301-6) 1.11 Oral Anticoagulant Therapy INR Values:1. Low Intensity Therapy 1.5 - 2.02 . Moderate Intensity Therapy 2.0 - 3.03. High Intensity Therapy(1) 2.5 - 3. 54. High Intensity Therapy(2) 3.0 - 4.05. Panic Value INR > 5.0 [facility] CenterActivated partial thromboplastin time (aPTT) in platelet poor plasma by coagulation [id number] 15:19:00* Test Item Value Reference Range Interpretation Comments Activated Partial Thromboplast Time (test code = 56334-3) 33.2 23.8-35.5 [facility] CenterFluoroscopic procedure less than one hour wgblzwpw8379-13-36 15:19:00* Test Item Value Reference Range Interpretation Comments Lactic Acid Level (test code = Lactic Acid Level) 1.6 0.5- 2.[address] [facility] [place] or plasma magnesium measurement (mass/volume)2019-06-01 15:19:00* Test Item Value Reference Range Interpretation Comments Magnesium Level (test code = 23663-5) 1.7 1.3-2.1 [facility] CenterBNP Hir-jNqu4827-64-05 15:19:00* Test Item Value Reference Range Interpretation Comments B-Type Natriuretic Peptide (test code = 93171-1) 58.0 0-100 [facility] CenterBlood wtjfglq6258-73-05 15:19:00* Test Item Value Reference Range Interpretation Comments Blood Culture (test code = 78036568) NO GROWTH AFTER 5 DAYS, FINAL REPORT [facility] CenterProthrombin time (PT) in platelet poor plasma by coagulation [id number] 15:19:00* Test Item Value Reference Range Interpretation Comments Prothrombin Time (test code = 5902-2) 15.0 11.9-14.5 [facility] CenterINR in Platelet poor plasma by Coagulation [id number] 15:19:00* Test Item Value Reference Range Interpretation Comments Prothromb Time International Ratio (test code = 6301-6) 1.11 Oral Anticoagulant Therapy INR Values:1. Low Intensity Therapy 1.5 - 2.02 . Moderate Intensity Therapy 2.0 - 3.03. High Intensity Therapy(1) 2.5 - 3. 54. High Intensity Therapy(2) 3.0 - 4.05. Panic Value INR > 5.0 [facility] CenterActivated partial thromboplastin time (aPTT) in platelet poor plasma by coagulation [id number] 15:19:00* Test Item Value Reference Range Interpretation Comments Activated Partial Thromboplast Time (test code = 56301-5) 33.2 23.8-35.5 [facility] CenterFluoroscopic procedure less than one hour xxigyunj9232-88-64 15:19:00* Test Item Value Reference Range Interpretation Comments Lactic Acid Level (test code = Lactic Acid Level) 1.6 0.5- 2.[address] [facility] [place] [place]um or plasma magnesium measurement (mass/volume)2019-06-01 15:19:00* Test Item Value Reference Range Interpretation Comments Magnesium Level (test code = 34681-8) 1.7 1.3-2.1 [facility] CenterBNP Bzl-iOlg1183-24-05 15:19:00* Test Item Value Reference Range Interpretation Comments B-Type Natriuretic Peptide (test code = 55401-4) 58.0 0-100 [facility] CenterBlood xdjraom7121-67-96 15:19:00* Test Item Value Reference Range Interpretation Comments Blood Culture (test code = 83660399) NO GROWTH AFTER 5 DAYS, FINAL REPORT [facility]
== END 2019-10-27 08:00 | disposition home or self-care (01) ==
LOC: ER 07:00
DX: U07.1 COVID-19 (principal); R50.9 Fever, unspecified; E78.00 Pure hypercholesterolemia, unspecified; Z86.73 Personal history of transient ischemic attack (TIA), and cerebral infarction without residual deficits
CPT/HCPCS: 99284

== ENCOUNTER 2020-09-23 14:47 | Inpatient (IN) | payer MEDICARE ==
[~2020-09-23] VITALS: Ht 175.3 cm; Wt 85.8 kg
[2020-09-23] MEDS ORDERED: SODIUM CHLORIDE 0.9% 1000ML 1,000 ML IV STA (15:21)
[2020-09-23 15:54] LABS: BASOPHILS # (AUTO) 0.1 (0.0-0.1); BASOPHILS % 0.4 % (0.0-1.0); EOSINOPHILS # (AUTO) 0.1 (0.0-0.4); EOSINOPHILS % 0.2 % (0.0-6.0); HEMATOCRIT 35.1 % (38.2-49.6); HEMOGLOBIN 11.8 g/dL (14.0-18.0); LYMPHOCYTES # (AUTO) 0.7 (1.0-3.2); LYMPHOCYTES % 3.1 % (18.0-39.1); MEAN CORPUSCULAR HEMOGLOBIN 29.4 pg (28-32); MEAN CORPUSCULAR HGB CONC 33.6 g/dL (31-35); MEAN CORPUSCULAR VOLUME 87.3 fL (81-99); MONOCYTES # (AUTO) 1.7 (0.2-0.8); MONOCYTES % 7.8 % (4.4-11.3); NEUTROPHILS % 87.8 % (38.7-80.0); PLATELET COUNT 451 x10e3/uL (140-360); RED BLOOD COUNT 4.02 x10e6/uL (4.3-5.7); RED CELL DISTRIBUTION WIDTH 12.9 % (11.7-14.4)
[2020-09-23 16:10] LABS: ALBUMIN 3.7 g/dL (3.5-5.0); ALBUMIN/GLOBULIN RATIO 0.9 (0.8-2.0); ANION GAP 14.2 mmol/L (8-16); CALCIUM 8.6 mg/dL (8.4-10.2); CREATININE, SERUM 1.36 mg/dL (0.72-1.25); POTASSIUM 4.2 mmol/L (3.5-5.1)
[2020-09-23] MEDS: PIPERACILLIN/TAZOBACTAM 3.375 GM in SODIUM CHLORIDE 0.9% 50ML 50 ML IV SCH (17:50)
[2020-09-23] MEDS ORDERED: FLOMAX0.4 MG PO (17:53)
[2020-09-23] MEDS ORDERED: LOSARTAN POTASS25 MG PO (17:53)
[2020-09-23 18:27] LABS: CLARITY,URINE SL CLOUDY (CLEAR); COLOR,URINE STRAW (YELLOW); KETONES,URINE NEGATIVE (NEGATIVE); LEUKOCYTE ESTERASE ,URINE MODERATE (NEGATIVE); NITRITE,URINE POSITIVE (NEGATIVE); PROTEIN,URINE DIPSTICK NEGATIVE (NEGATIVE); URINE UROBILINOGEN 0.2 mg/dL (0.2 - 1)
[2020-09-23 18:48] LABS: BACTERIA,URINE MANY /HPF; RBC,URINE 0-5 /HPF (0-5); WBC,URINE (MAN) 21-50 /HPF (0-5)
[2020-09-23 19:45] VITALS: BP 127/58
[2020-09-23] MEDS: SODIUM CHLORIDE 0.9% 1000ML 1,000 ML IV SCH (23:45)
[2020-09-24] VITALS (10 sets, daily range): BP systolic 127–143; BP diastolic 57–64
[2020-09-24] MEDS: PIPERACILLIN/TAZOBACTAM 3.375 GM in SODIUM CHLORIDE 0.9% 50ML 50 ML IV SCH ×5 (06:00→18:00)
[2020-09-24] MEDS: SODIUM CHLORIDE 0.9% 1000ML 1,000 ML IV SCH ×2 (08:45→15:08)
[2020-09-24] MEDS ORDERED: ONDANSETRON HCL INJ 2MG/ML 2ML 2 MG/ML VIAL IV PRN (12:00)
[2020-09-24] MEDS ORDERED: ACETAMINOPHEN 325 MG TAB PO PRN (12:00)
[2020-09-24] MEDS ORDERED: DOCUSATE SODIUM 100 MG CAP PO PRN (12:00)
[2020-09-24 12:34] LABS: BASOPHILS # (AUTO) 0.1 (0.0-0.1); BASOPHILS % 0.6 % (0.0-1.0); EOSINOPHILS # (AUTO) 0.1 (0.0-0.4); EOSINOPHILS % 0.3 % (0.0-6.0); HEMATOCRIT 33.9 % (38.2-49.6); HEMOGLOBIN 11.2 g/dL (14.0-18.0); LYMPHOCYTES # (AUTO) 2.8 (1.0-3.2); LYMPHOCYTES % 17.7 % (18.0-39.1); MEAN CORPUSCULAR HEMOGLOBIN 29.4 pg (28-32); MONOCYTES # (AUTO) 1.4 (0.2-0.8); MONOCYTES % 9.1 % (4.4-11.3); NEUTROPHILS # (AUTO) 11.4 (2.1-6.9); NEUTROPHILS % 71.7 % (38.7-80.0); PLATELET COUNT 424 x10e3/uL (140-360); RED BLOOD COUNT 3.81 x10e6/uL (4.3-5.7)
[2020-09-24 12:57] LABS: ANION GAP 12.7 mmol/L (8-16); CALCIUM 8.2 mg/dL (8.4-10.2); CREATININE, SERUM 1.19 mg/dL (0.72-1.25); POTASSIUM 3.7 mmol/L (3.5-5.1)
[2020-09-24 13:35] LABS: CHOL/HDL RATIO 3.1 (3.9-4.7)
[2020-09-24] MEDS ORDERED: PHENYLEPH/SHARK OIL/MO/PETROL 30 GM OINT RC PRN (16:30)
[2020-09-24] MEDS: SIMVASTATIN 20 MG TAB PO SCH (21:00)
[2020-09-25] VITALS (8 sets, daily range): BP systolic 132–159; BP diastolic 63–75
[2020-09-25] MEDS: SODIUM CHLORIDE 0.9% 1000ML 1,000 ML IV SCH ×2 (05:10→15:19)
[2020-09-25] MEDS: PIPERACILLIN/TAZOBACTAM 3.375 GM in SODIUM CHLORIDE 0.9% 50ML 50 ML IV SCH ×5 (05:48→18:06)
[2020-09-25] MEDS ORDERED: ONDANSETRON HCL 4 MG ORAL DISINTEGRATING TAB PO PRN (08:15)
[2020-09-25] MEDS ORDERED: TAMSULOSIN HCL 0.4 MG CAP PO SCH (09:00)
[2020-09-25] MEDS ORDERED: ASPIRIN 81 MG CHEW TAB PO SCH (09:00)
[2020-09-25] MEDS ORDERED: FERROUS SULFATE 325 MG TAB PO SCH (09:00)
[2020-09-25] MEDS ORDERED: AMLODIPINE BESYLATE 10 MG TAB PO SCH (09:00)
[2020-09-25] MEDS ORDERED: CEFUROXIME250 MG PO (20:35)
[2020-09-25] MEDS: SIMVASTATIN 20 MG TAB PO SCH (20:50)
[2020-09-25 21:18] LABS: BASOPHILS # (AUTO) 0.1 (0.0-0.1); BASOPHILS % 0.9 % (0.0-1.0); EOSINOPHILS # (AUTO) 0.3 (0.0-0.4); EOSINOPHILS % 2.4 % (0.0-6.0); HEMATOCRIT 33.9 % (38.2-49.6); HEMOGLOBIN 11.2 g/dL (14.0-18.0); LYMPHOCYTES # (AUTO) 2.9 (1.0-3.2); LYMPHOCYTES % 25.5 % (18.0-39.1); MEAN CORPUSCULAR HEMOGLOBIN 29.2 pg (28-32); MEAN CORPUSCULAR VOLUME 88.3 fL (81-99); MONOCYTES # (AUTO) 1.2 (0.2-0.8); MONOCYTES % 10.4 % (4.4-11.3); NEUTROPHILS # (AUTO) 6.7 (2.1-6.9); NEUTROPHILS % 59.2 % (38.7-80.0); PLATELET COUNT 428 x10e3/uL (140-360); RED BLOOD COUNT 3.84 x10e6/uL (4.3-5.7); RED CELL DISTRIBUTION WIDTH 12.7 % (11.7-14.4)
== END 2020-09-25 23:02 | disposition home or self-care (01) | DRG 871 ==
LOC: ER 15:33 → ERHOLD 16:50 → MED/SURG2 20:04
PROVIDERS: ADMIT Internal Medicine; ATTEND Internal Medicine
DX: A41.9 Sepsis, unspecified organism (principal); G93.41 Metabolic encephalopathy; N39.0 Urinary tract infection, site not specified; E87.1 Hypo-osmolality and hyponatremia; N17.9 Acute kidney failure, unspecified; E11.9 Type 2 diabetes mellitus without complications; E78.5 Hyperlipidemia, unspecified; N40.0 Benign prostatic hyperplasia without lower urinary tract symptoms; Z87.891 Personal history of nicotine dependence; B96.20 Unspecified Escherichia coli [E. coli] as the cause of diseases classified elsewhere; Z86.73 Personal history of transient ischemic attack (TIA), and cerebral infarction without residual deficits
CPT/HCPCS: 36415; 80048; 80053; 80061; 81001; 82948; 83036; 83605; 85025; 87040; 87086; 87186; 93005; 96361; 99284; J2543; J7030; U0002

== ENCOUNTER 2020-11-22 08:46 | Emergency (ER) | payer MEDICARE ==
[~2020-11-22] VITALS: Ht 175.3 cm; Wt 85.7 kg
[~2020-11-22 08:46] MED LIST changes: +CEFUROXIME250 MG PO; +FLOMAX0.4 MG PO
[2020-11-22 10:41] LABS: CLARITY,URINE CLOUDY (CLEAR); COLOR,URINE YELLOW (YELLOW); LEUKOCYTE ESTERASE ,URINE MODERATE (NEGATIVE); NITRITE,URINE NEGATIVE (NEGATIVE)
[2020-11-22 10:42] LABS: KETONES,URINE NEGATIVE (NEGATIVE); PROTEIN,URINE DIPSTICK 2+ (NEGATIVE); URINE UROBILINOGEN 0.2 mg/dL (0.2 - 1)
[2020-11-22 10:54] LABS: WBC,URINE (MAN) >50 /HPF (0-5)
[2020-11-22 10:55] LABS: BACTERIA,URINE MANY /HPF; EPITHELIAL CELLS,URINE MODERATE /LPF; RBC,URINE 21-50 /HPF (0-5)
[2020-11-22] MEDS ORDERED: CEPHALEXIN500 MG PO (12:01)
== END 2020-11-22 15:56 | disposition home or self-care (01) ==
LOC: ER 08:50
DX: N39.0 Urinary tract infection, site not specified (principal); E78.00 Pure hypercholesterolemia, unspecified; Z86.73 Personal history of transient ischemic attack (TIA), and cerebral infarction without residual deficits
CPT/HCPCS: 81001; 87086; 87186; 99283